=== PATIENT | male | born 1960 | race Caucasian/White ===

== ENCOUNTER → 2016-12-24 | Day surgery (SDC) | payer OTHER ==
[2016-12-12 15:22] VITALS: Ht 176.5 cm; Wt 96.4 kg
[~2016-12-24] VITALS: Ht 176.5 cm; Wt 96.4 kg
[~2016-12-24] MED LIST: ASPI81TA28 PO; COEN1CAP17 PO; GLC/500 PO; GLIP-197 PO; GLUC1000 PO; LIDOCAINE HCL 2% 2 ML VIAL (20MG/ML) ONE; LISI-725 PO; MIDAZOLAM HCL 1 MG/ML 2ML VIAL ONE; MULT-506 PO; PROPOFOL IV EMULSION 10 MG/ML 20 ML VIAL IV ONE; SIMV20TA2 PO; SODIUM CHLORIDE 0.9% 500ML 500 ML IV ONE
--- NOTE | 2016-12-24 08:51 | Endo History and Physical ---
History & Physical Date of Service: Dec 24, 2016. Chief Complaint: Colon polyps Referring Physician: Dr. Roni Flynn History of Present Illness 56 yo CM who presents for colonoscopy secondary to history of colon polyps. Past Surgical History Hx Cardiac Surgery: No Hx Internal Defibrillator: No Hx Pacemaker: No Hx Abdominal Surgery: No Hx of Implantable Prosthesis: No Hx Post-Op Nausea and Vomiting: No Hx Cancer Surgery: No Hx Thoracic Surgery: No Hx Orthopedic: Yes (LT/RT CTR, RT HAND TRIGGER FINGER) Hx Urinary Tract Surgery: Yes (VASECTOMY) Family History Colon CA Social History Smoking Status: Current Every Day Smoker Hx Substance Use: No Hx Alcohol Use: Yes (OCCASIONAL) Allergies Coded Allergies: No Known Allergies (Verified , 12/24/16) Current Medications Reported Home Medications Medications Dose Route/Sig Max Daily Dose Days Date Category Glucosamine Sulfate 1,000 Mg Tab 1 Tab PO QAM 12/12/16 Reported Multivitamin (Multivitamins) Tab 1 Tab PO QAM 12/12/16 Reported Glucophage (Metformin Hcl) 500 Mg Tab 500 Mg PO TID 12/12/16 Reported Glipizide Er (Glipizide) 5 Mg Tab 1 Tab PO QAM 12/12/16 Reported Zocor (Simvastatin) 20 Mg Tab 20 Mg PO HS 12/12/16 Reported Zestril (Lisinopril) 20 Mg Tab 20 Mg PO HS 12/12/16 Reported Co Q 10 (Coenzyme Q10 (Ubidecarenone)) 100 Mg Cap 200 Mg PO QAM 12/12/16 Reported Aspirin Ec (Aspirin) 81 Mg Tab 81 Mg PO QAM 12/12/16 Reported Vital Signs Weight (Kilograms): 96.36 Height (Feet): 5 Height (Inches): 9.5 Date Time Temp Pulse Resp B/P Pulse Ox O2 Delivery O2 Flow Rate FiO2 12/24/16 08:06 36.9 67 18 157/89 94 Room Air Physical Exam General Appearance: WD/WN, no apparent distress Respiratory/Chest: Auscultation: breath sounds normal Cardiovascular: Heart Auscultation: RRR Abdomen: Bowel Sounds: normal Inspection & Palpation: soft, non-distended, no tenderness, guarding & rebound Assessment and Plan Assessment: 56 yo CM who presents for colonoscopy secondary to history of colon polyps. Plan: Proceed with colonoscopy.
--- NOTE | 2016-12-24 09:10 | Discharge Instructions ---
Endoscopy Patient Instructions Date / Procedure(s) Performed Dec 24, 2016. Colonoscopy Allergy Information Coded Allergies: No Known Allergies (Verified , 12/24/16) Discharge Date / Findings Dec 24, 2016. Colon polyps Internal hemorrhoids Medication Instructions Stopped Medication(s): Patient was told to only stop his metformin. OK to resume all medications today as prescribed. Reported Home Medications Medications Dose Route/Sig Max Daily Dose Days Date Category Glucosamine Sulfate 1,000 Mg Tab 1 Tab PO QAM 12/12/16 Reported Multivitamin (Multivitamins) Tab 1 Tab PO QAM 12/12/16 Reported Glucophage (Metformin Hcl) 500 Mg Tab 500 Mg PO TID 12/12/16 Reported Glipizide Er (Glipizide) 5 Mg Tab 1 Tab PO QAM 12/12/16 Reported Zocor (Simvastatin) 20 Mg Tab 20 Mg PO HS 12/12/16 Reported Zestril (Lisinopril) 20 Mg Tab 20 Mg PO HS 12/12/16 Reported Co Q 10 (Coenzyme Q10 (Ubidecarenone)) 100 Mg Cap 200 Mg PO QAM 12/12/16 Reported Aspirin Ec (Aspirin) 81 Mg Tab 81 Mg PO QAM 12/12/16 Reported Provider Instructions Activity Restrictions - No exercising or heavy lifting for 24 hours. - Do not drink alcohol the day of the procedure. - Do not drive a car or operate machinery until the day after the procedure. - Do not make any important decisions or sign important papers in 24 hours after the procedure. Following Day: - Return to full activity which may include returning to work/school. Diet Start your diet with liquids and light foods (jello, soup, juice, toast). Then eat your usual diet if not nauseated. Treatment For Common After Affects For mild abdominal pain, bloating, or excessive gas: - Rest - Eat lightly - Lie on right side Follow-Up Information Follow-up with Dr. Roni Flynn as scheduled Anesthesia Information What You Should Know You have had a procedure that required some medicine to reduce anxiety and discomfort. This treatment is called moderate sedation. After receiving the treatment, you may be sleepy, but you will be able to breathe on your own. The effects of the treatment may last for several hours. Follow these instructions along with Activity/Diet recommendations noted above: * Do NOT do anything where dizziness or clumsiness would be dangerous. * Rest quietly at home today, then you can be up and about tomorrow. * Have a responsible person stay with you the rest of today. * You may have had an I.V. today. If so, you may take the dressing off later today. Recommendations Call your doctor if: * Trouble breathing * Continuous vomiting for more than 24 hours * Temperature above 101 degrees * Severe abdominal pain or bloating * Pain not relieved by pain medicine ordered * There is increased drainage or redness from any incision * A large amount of rectal bleeding greater than 2-3 tablespoons. (If you had a polyp/s removed or have hemorrhoids, a small amount of blood - from the rectum is to be expected.) * You have any unanswered questions or concerns. IN THE EVENT OF A SERIOUS EMERGENCY, GO TO THE NEAREST EMERGENCY ROOM Your discharge instructions were prepared by provider Tres Bhakta. Patient Instructions Signature Page Juan Carlos Hoang Patient (or Guardian) Signature/Date: I have read and understand the instructions given to me by my caregivers. Caregiver/RN/Doctor Signature/Date: The above-named patient and/or guardian has received patient instructions on this date. + Original Patient Signature Page (only) stays with chart. Please make copy for patient.
--- NOTE | 2016-12-24 09:14 | GI REPORT ---
Procedure Date: 12/24/2016 8:48 AM Procedure: Colonoscopy Indications: High risk colon cancer surveillance: Personal history of colonic polyps Medicines: Monitored Anesthesia Care Complications: No immediate complications. Estimated Blood Loss: Estimated blood loss: none. Procedure: Pre-Anesthesia Assessment: - Prior to the procedure, a History and Physical was performed, and patient medications and allergies were reviewed. The patient's tolerance of previous anesthesia was also reviewed. The risks and benefits of the procedure and the sedation options and risks were discussed with the patient. All questions were answered, and informed consent was obtained. Prior Anticoagulants: The patient has taken aspirin, last dose was day of procedure. ASA Grade Assessment: III - A patient with severe systemic disease. After reviewing the risks and benefits, the patient was deemed in satisfactory condition to undergo the procedure. After I obtained informed consent, the scope was passed under direct vision. Throughout the procedure, the patient's blood pressure, pulse, and oxygen saturations were monitored continuously. The scope was introduced through the anus and advanced to the terminal ileum. The colonoscopy was performed without difficulty. The patient tolerated the procedure well. The quality of the bowel preparation was good. Findings: A 3 mm polyp was found in the sigmoid colon. The polyp was sessile. The polyp was removed with a cold biopsy forceps. Resection and retrieval were complete. A 5 mm polyp was found in the sigmoid colon. The polyp was sessile. The polyp was removed with a hot snare. Resection and retrieval were complete. Non-bleeding internal hemorrhoids were found during retroflexion. The hemorrhoids were small. Impression: - One 3 mm polyp in the sigmoid colon, removed with a cold biopsy forceps. Resected and retrieved. - One 5 mm polyp in the sigmoid colon, removed with a hot snare. Resected and retrieved. - Non-bleeding internal hemorrhoids. Recommendation: - Resume previous diet. - Continue present medications. - Repeat colonoscopy for surveillance based on pathology results. - Return to primary care physician as previously scheduled. Tres Bhakta DO 12/24/2016 9:13:12 AM This report has been signed electronically. Note Initiated On: 12/24/2016 8:48 AM I attest to the content of the Intraoperative Record and orders documented therein, exceptions below
--- NOTE | 2016-12-24 09:34 | Anesthesiology Progress Note ---
Anesthesia Post Op Note Date & Time Dec 24, 2016 at 09:34 Vital Signs Pain Intensity: 0 Vital Signs Past 12 Hours Date Time Temp Pulse Resp B/P Pulse Ox O2 Delivery O2 Flow Rate FiO2 12/24/16 09:12 62 16 106/61 96 Room Air 12/24/16 08:06 36.9 67 18 157/89 94 Room Air Notes Mental Status: alert / awake / arousable, participated in evaluation Pt Amnestic to Procedure: Yes Nausea / Vomiting: adequately controlled Pain: adequately controlled Airway Patency, RR, SpO2: stable & adequate BP & HR: stable & adequate Hydration State: stable & adequate Anesthetic Complications: no major complications apparent
[2016-12-24 09:50] VITALS: BP 130/82; PULSE 62; O2SAT 97
== END | disposition home or self-care (01) ==
LOC: C.GI 07:39
PROVIDERS: ATTEND Internal Medicine
DX: Z12.11 Encounter for screening for malignant neoplasm of colon (principal); Z86.010 Personal history of colon polyps; K63.5 Polyp of colon; K57.30 Diverticulosis of large intestine without perforation or abscess without bleeding; K64.8 Other hemorrhoids; Z80.0 Family history of malignant neoplasm of digestive organs; Z98.890 Other specified postprocedural states; Z79.82 Long term (current) use of aspirin; F17.210 Nicotine dependence, cigarettes, uncomplicated

== ENCOUNTER → 2017-01-23 | Outpatient (CLI) | payer OTHER ==
[~2017-01-23] MED LIST changes: -LIDOCAINE HCL 2% 2 ML VIAL (20MG/ML) ONE; -MIDAZOLAM HCL 1 MG/ML 2ML VIAL ONE; -PROPOFOL IV EMULSION 10 MG/ML 20 ML VIAL IV ONE; -SODIUM CHLORIDE 0.9% 500ML 500 ML IV ONE
[2017-01-23 10:58] LABS: ESTIMATED AVERAGE GLUCOSE 163 mg/dl; HA1C FLAG Normal (Normal)
[2017-01-23 11:07] LABS: ALT/SGPT 37 U/L (12-78); AST/SGOT 12 U/L (15-37); BLOOD UREA NITROGEN 15 mg/dl (7-18); BUN/CREATININE RATIO 14.8 (10-20); CALCIUM 8.7 mg/dl (8.5-10.1); CARBON DIOXIDE 29 mmol/L (21-32); CHLORIDE 104 mmol/L (98-107); CHOLESTEROL 142 mg/dl (0-200); GLUCOSE 262 mg/dl (70-99); POTASSIUM 4.1 mmol/L (3.5-5.1); SODIUM 140 mmol/L (136-145)
[2017-01-23 11:13] LABS: CHOLESTEROL/HDL RATIO 3.5; HDL CHOLESTEROL 41 mg/dl; LDL CHOLESTEROL CALCULATED 38 mg/dl; PROSTATE SPECIFIC ANTIGEN 0.914 ng/ml (0.000-4.000); TRIGLYCERIDES 317 mg/dl (0-150); VERY LOW DENSITY LIPOPROT CALC 63 mg/dl
[2017-01-23 12:22] LABS: RATIO 9.6 mcg/mg (0-30.0)
== END | disposition home or self-care (01) ==
LOC: C.LAB 07:03
PROVIDERS: ATTEND Internal Medicine
DX: E11.9 Type 2 diabetes mellitus without complications (principal); E78.5 Hyperlipidemia, unspecified; Z12.5 Encounter for screening for malignant neoplasm of prostate

== ENCOUNTER → 2017-05-27 | Outpatient (CLI) | payer OTHER ==
[2017-05-27 09:41] LABS: BLOOD UREA NITROGEN 14 mg/dl (7-18); BUN/CREATININE RATIO 14.8 (10-20); CALCIUM 8.8 mg/dl (8.5-10.1); CARBON DIOXIDE 31 mmol/L (21-32); CHLORIDE 106 mmol/L (98-107); CREATININE 0.97 mg/dl (0.60-1.40); GLUCOSE 166 mg/dl (70-99); POTASSIUM 4.4 mmol/L (3.5-5.1); SODIUM 140 mmol/L (136-145)
[2017-05-27 09:42] LABS: TRIGLYCERIDES 87 mg/dl (0-150)
[2017-05-27 10:11] LABS: ESTIMATED AVERAGE GLUCOSE 157 mg/dl; HA1C FLAG Normal (Normal)
== END | disposition home or self-care (01) ==
LOC: C.LAB 07:55
PROVIDERS: ATTEND Internal Medicine
DX: E11.9 Type 2 diabetes mellitus without complications (principal); E78.5 Hyperlipidemia, unspecified

== ENCOUNTER 2017-08-06 06:19 | Emergency (ER) | payer OTHER ==
[~2017-08-06] VITALS: Ht 175.3 cm; Wt 98.2 kg
[2017-08-06 06:22] VITALS: BP 203/101; PULSE 73; TEMP 36.8; O2SAT 97; Ht 175.3 cm; Wt 98.2 kg
--- NOTE | 2017-08-06 06:38 | EMERGENCY ROOM VISIT NOTE ---
ED Visit Note First contact with patient: 06:34 CHIEF COMPLAINT: Tick bite HISTORY OF PRESENT ILLNESS: This 56 yo patient presents to the emergency department after they noticed 3 ticks embedded less than 24 hours. The patient did not try to remove it. It had been on for less than 24 hours. The patient's tetanus shot is up-to-date. The patient denies any rashes, fevers, chills, or lightheadedness. The patient denies joint tenderness. REVIEW OF SYSTEMS: A 6 system review of systems was completed with positives and pertinent negatives listed in the HPI. ALLERGIES: None MEDICATIONS: Reviewed PMH: Hypertension SOCIAL HISTORY: No drug use PHYSICAL EXAM: Vital Signs: Reviewed Nurse's notes, vital signs hypertensive. GENERAL: Pleasant male, in no acute distress, well-developed, well-nourished. SKIN: There 3 small brown ticks embedded in the patient's abdomen. There small small zones of inflammation and eccymosis around the spot where the ticks were. The skin is otherwise clear. NEUROLOGICAL: Alert and oriented to person place and time, cooperative. Sensory and motor functions grossly intact. ED COURSE: I examined the patient. A tick twister was used to remove the 3 ticks. The whole head was removed. There was no bleeding. The patient tolerated the procedure well. The area was dressed with bacitracin and a bandage. Patient was counseled on signs and symptoms of Lyme's disease. All questions are answered. He was informed his blood pressure was high today and to follow-up family care for this. He has a history of hypertension. The patient was discharged home in good condition. DIAGNOSIS: 3 Tick bites and removal to the abdominal wall DISCHARGE INSTRUCTIONS & TREATMENT: Watch the area for signs of infection. Keep bacitracin on it for 2 days. Follow up with family doctor if he develops symptoms of a target rash, fever, chills, lightheadedness, or joint pain. Monitor your blood pressure. It was high today. Follow-up with family care for this. Current/Historical Medications Scheduled Aspirin (Aspirin Ec), 81 MG PO QAM Coenzyme Q10 (Ubidecarenone) (Co Q 10), 200 MG PO QAM Glipizide (Glipizide Er), 1 TAB PO QAM Glucosamine Sulfate (Glucosamine Sulfate), 1 TAB PO QAM Lisinopril (Zestril), 20 MG PO HS Metformin Hcl (Glucophage), 500 MG PO TID Multivitamin (Multivitamin), 1 TAB PO QAM Simvastatin (Zocor), 20 MG PO HS Allergies Coded Allergies: No Known Allergies (Verified , 12/24/16) Vital Signs Date Time Temp Pulse Resp B/P (MAP) Pulse Ox O2 Delivery O2 Flow Rate FiO2 08/06/17 06:22 36.8 73 18 203/101 97 Room Air Departure Information Referrals Pro,Roni Ly M.D. (PCP) Patient Instructions [facility]
== END 2017-08-06 06:46 | disposition home or self-care (01) ==
LOC: C.EDB 06:20 → C.EDA 06:46
DX: S30.861A Insect bite (nonvenomous) of abdominal wall, initial encounter (principal); W57.XXXA Bitten or stung by nonvenomous insect and other nonvenomous arthropods, initial encounter

== ENCOUNTER → 2017-09-17 | Outpatient (CLI) | payer OTHER ==
[2017-09-17 10:19] LABS: ALT/SGPT 25 U/L (12-78); AST/SGOT 7 U/L (15-37); BLOOD UREA NITROGEN 21 mg/dl (7-18); BUN/CREATININE RATIO 24.5 (10-20); CALCIUM 9.2 mg/dl (8.5-10.1); CARBON DIOXIDE 27 mmol/L (21-32); CHLORIDE 104 mmol/L (98-107); CHOLESTEROL 159 mg/dl (0-200); CREATININE 0.87 mg/dl (0.60-1.40); GLUCOSE 162 mg/dl (70-99); POTASSIUM 4.3 mmol/L (3.5-5.1); SODIUM 137 mmol/L (136-145); TRIGLYCERIDES 108 mg/dl (0-150); VERY LOW DENSITY LIPOPROT CALC 22 mg/dl
[2017-09-17 10:22] LABS: CHOLESTEROL/HDL RATIO 3.1; HDL CHOLESTEROL 52 mg/dl; LDL CHOLESTEROL CALCULATED 85 mg/dl
[2017-09-17 10:29] LABS: ESTIMATED AVERAGE GLUCOSE 169 mg/dl; HA1C FLAG Normal (Normal)
== END | disposition home or self-care (01) ==
LOC: C.LAB 06:28
PROVIDERS: ATTEND Internal Medicine
DX: E11.9 Type 2 diabetes mellitus without complications (principal); E78.5 Hyperlipidemia, unspecified

== ENCOUNTER 2024-03-22 16:55 | Inpatient (IN) ==
--- NOTE | 2024-03-22 16:59 | ED Triage Note ---
Date of Service March 22, 2024 Provider in Triage Author: Ritchie Thapa History of Present Illness This patient was briefly evaluated while in triage. An abbreviated physical exam was performed. This patient is a 63-year-old Male who presents to the ED for evaluation of chest pain and sweatiness. Patient also reports mild dizziness with mild nausea. The patient reports that it is in the center of his chest. He denies any pain radiating into the neck or left shoulder. The patient also reports feeling weak. Symptoms started 1/2-hour prior to arrival. The patient rates his discomfort a 6 out of 10. The patient denies any known personal or family history of heart attacks. Physical Exam CONSTITUTIONAL: Healthy and well nourished. Patient is mildly diaphoretic. RESPIRATORY: Clear to auscultation bilaterally with no wheezing, crackles, rhonchi or stridor. CARDIOVASCULAR: Regular rate and rhythm with no murmurs, rubs or gallops. GASTROINTESTINAL: Bowel sounds present in all quadrants. INTEGUMENTARY: No rash or other significant dermatologic conditions noted. HEMATOLOGIC: No ecchymosis or petechiae. PSYCHIATRIC: Positive affect. NEUROLOGIC: No focal neurologic deficits noted. Initial orders for labs and / or imaging were placed and patient was placed in the waiting area until a bed is available. Please see further documentation for the full ED course. Results & Data Other Data / Results An ECG shows an inferolateral ST elevation IN, as well as first-degree heart block. MDM / Impression Impression Impression: ST elevation myocardial infarction (STEMI)
[2024-03-22] MEDS: ASPIRIN 81 MG CHEW PO STA (17:09)
--- NOTE | 2024-03-22 17:10 | Emergency Department Note ---
Impression & Plan ST elevation myocardial infarction (STEMI) ED Provider Note NAME: SULTANA MONTANO AGE: 63 SEX: M : 1960 ARRIVES VIA: Walk-In INFORMANT: Patient ED PROVIDER(S): Juan Villeda MD CHIEF COMPLAINT: Chest pain PLAN: Disposition: Admit MEDICAL DECISION MAKING: The patient is a pleasant 63-year-old gentleman with a past medical history of type 2 diabetes who presents to the emergency department via walk-in accompanied by sister for evaluation of new onset substernal chest pain/pressure that occurred approximately 40 minutes prior to arrival when patient reports he was digging a hole to help his sister. Patient denies any preceding pattern of exertional chest pain. He reports feeling lightheaded and diaphoretic. He denies nausea or vomiting. He reports his pain is a 4/10. The patient presented to triage and had an EKG obtained which demonstrated inferior ST elevation RI and heart alert was activated. On my evaluation the patient is uncomfortable no distress, afebrile with blood pressure in the 150s/90s and vital signs otherwise stable. EKG demonstrates inferior ST elevations with reciprocal depressions noted. Chest x-ray with cardiomegaly and otherwise no overt cardiopulmonary process per my preliminary independent interpretation. WBC 12 K without left shift, nonspecific. Hemoglobin and platelets within limits. Chemistry without metabolic acidosis. LFTs unremarkable. Initial hostage troponin 7.0, within normal limits. Lipase is normal. Interventional cardiology, Dr. Liu, arrived to the bedside and consented the patient for [facility] intervention. Patient received 324 mg of aspirin, 180 mg ticagrelor load as well as 5000 units of heparin bolus. He was given IV fentanyl for pain and Zofran for nausea. Patient was transferred emergently to the [facility] for intervention. Case was discussed with Dr. Monroy, [facility] hospitalist, who will evaluate the patient for admission. Appreciate consultations/recommendations. Triage Nursing notes reviewed and agree them. Prior/external medical records reviewed Vital Signs: reviewed Differential diagnosis: Cardiac ischemia, aortic dissection, pulmonary embolism, pneumothorax, pneumonia, pericarditis, myocarditis, esophageal rupture, GERD, cholecystitis, pancreatitis, musculoskeletal, as well as other pathologies. ER treatment provided: See below. Diagnostics interpreted by me: ECG: Sinus bradycardia with first-degree AV block, 58 bpm, inferior ST elevations with reciprocal depressions. Cardiac Monitoring: An order for continuous cardiac monitoring was placed and demonstrated Sinus bradycardia with first-degree AV block, 58 bpm. Laboratory studies: See below Imaging studies: See below Consultation(s): Dr. Liu, interventional cardiology. Dr. Monroy, [facility] hospitalist. HPI: The patient is a pleasant 63-year-old gentleman with a past medical history of type 2 diabetes who presents to the emergency department via walk-in accompanied by sister for evaluation of new onset substernal chest pain/pressure that occurred approximately 40 minutes prior to arrival when patient reports he was digging a hole to help his sister. Patient denies any preceding pattern of exertional chest pain. He reports feeling lightheaded and diaphoretic. He denies nausea or vomiting. He reports his pain is a 4/10. The patient presented to triage and had an EKG obtained which demonstrated inferior ST elevation RI and heart alert was activated. ROS: See above HPI for pertinent positives & negatives. A total of 10 systems reviewed and were otherwise negative. VITALS:See Below PHYSICAL EXAMINATION: GENERAL: Awake, alert, uncomfortable-appearing, in no distress HENT: Normocephalic, atraumatic. Oropharynx unremarkable. EYES: Normal conjunctiva. Sclera non-icteric. NECK: Supple. No nuchal rigidity. FROM. No JVD. RESPIRATORY: Clear to auscultation. CARDIAC: Regular rate, normal rhythm. Extremities warm and well perfused. Pulses equal. ABDOMEN: Soft, non-distended. No tenderness to palpation. No rebound or guarding. No masses. MUSCULOSKELETAL: Chest examination reveals no tenderness. The back is symmetrical on inspection without obvious abnormality. There is no CVA tenderness to palpation. No joint edema. LOWER EXTREMITIES: Calves are equal size bilaterally and non-tender. No edema. No discoloration. NEURO: Normal sensorium. No sensory or motor deficits noted. SKIN: Mild diaphoresis. No rash or jaundice noted. ED COURSE: Critical Care: I have personally spent greater than 30 minutes of critical care time in the direct management of this patient. This includes bedside care, interpretation of diagnostic studies, and testing, discussion with consultants, patient, and family members, and other required patient management activities. This 30 minutes is in excess of all separately billable procedures. 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) Overweight (Acute) Peyronie's disease (Acute) Encounter for mastoidectomy cavity debridement Screening for prostate cancer Right hip pain Type 2 diabetes mellitus (Acute) H/O mastoidectomy (Acute) Medical History Sore throat Cough productive of purulent sputum Nasal congestion Bacterial sinusitis Arthritis BPH (benign prostatic hyperplasia) Hypertension Hyperlipidemia Tick bite Surgical History S/P trigger finger release History of colonoscopy History of tooth extraction History of ear surgery RT EAR>CYST REMOVED History of vasectomy Hx of tonsillectomy Family History Brother Myocardial infarction Mother Diabetes Myocardial infarction Cancer Sister Diabetes Lung cancer Cancer Father Lung cancer Unknown Hypertension Other No family history of adverse response to anesthesia Denies family history of Bleeding disorder Social History Smoking Status: Current every day smoker Tobacco Type: Cigarettes Age Started Using Tobacco: 19; packs per day: 0.5; Cigarettes Per Day: 6; Second Hand Exposure: No; Do You Dip or Chew Tobacco: No; Tobacco Cessation Education Requested by Patient: Yes Hx Alcohol Use: Yes Alcohol type: beer Hx Substance Use: No Preferred Language: Egyptian Communication Ability: Effective Visual Impairment: No Limitations Hearing Ability: Normal Gravity Prospecting Operator Required: No Beliefs That Will Affect Care: Amish Amish Beliefs: Christian marital status: Single Current Living Situation: Alone Current Living Situation Comment: Home alone current occupational status: employed Other Information That Helps Us Care for You: No Feels Safe at Home: Yes Safety Concerns: Feels Safe At This Time Physical Activity Frequency: Does not Exercise Assistive Devices: Glasses Allergies Allergies Allergy/AdvReac Type Severity Reaction Status Date / Time No Known Drug Allergies Allergy Verified 12/03/23 07:30 Home Meds Home Medications Medication Instructions Recorded Confirmed aspirin 81 mg tablet,delayed 81 mg PO DAILY #90 tabs 06/11/19 03/22/24 release multivitamin 1 tab PO DAILY 06/11/19 03/22/24 ascorbate calcium (vitamin C) 500 500 mg PO DAILY 12/14/19 03/22/24 mg tablet Previous Rx's Medication Instructions Recorded lancets 28 gauge (FreeStyle #100 ea 06/16/19 Lancets) blood-glucose meter (FreeStyle #1 ea 07/06/19 Lite Meter kit) blood sugar diagnostic (FreeStyle #200 ea 12/22/19 Lite Strips) glipizide 5 mg tablet, extended 5 mg PO BID #180 tabs 03/24/23 release 24 hr metformin 500 mg tablet 1,000 mg (2 x 500 mg) PO BID #360 04/23/23 tabs lisinopril 40 mg tablet 40 mg PO DAILY #90 tabs 06/26/23 simvastatin 20 mg tablet 20 mg PO HS #90 tabs 06/30/23 dulaglutide 3 mg/0.5 mL 3 mg (0.5 mL) subcut WK #6 mL 10/22/23 subcutaneous pen injector hydrochlorothiazide 12.5 mg tablet 12.5 mg PO DAILY #90 tabs 01/11/24 dulaglutide 1.5 mg/0.5 mL 1.5 mg (0.5 mL) subcut .COMPLEX #6 02/16/24 [facility] Results & Data (ED) Vital Signs Vital Signs - 24 hr 03/22/24 16:56 03/22/24 17:09 03/22/24 17:10 Temperature 36.4 C L Temperature Source Temporal Artery Scan Pulse Rate 60 63 Pulse Rate [Apical] 63 Pulse Rate from SpO2 Sensor Respiratory Rate 17 18 18 Respiratory Effort / Characteristics Non-Labored Respiratory Depth Normal Respiratory Pattern Regular Blood Pressure 115/67 Blood Pressure [Right Arm] 137/82 Blood Pressure Mean 83 Blood Pressure Mean [Right Arm] 100 Pulse Oximetry 96 98 Oxygen Delivery Method Room Air Room Air Oxygen Flow Rate Sepsis Recent Fever Within 48 Hours No Sepsis New/Unexplained Change in Mental Status N/A Sepsis Action Taken by Nursing No Action Required 03/22/24 17:12 03/22/24 17:15 03/22/24 17:15 Temperature Temperature Source Pulse Rate 62 61 Pulse Rate [Apical] Pulse Rate from SpO2 Sensor 62 Respiratory Rate 19 15 Respiratory Effort / Characteristics Respiratory Depth Respiratory Pattern Blood Pressure 151/91 H Blood Pressure [Right Arm] Blood Pressure Mean 125 Blood Pressure Mean [Right Arm] Pulse Oximetry 100 Oxygen Delivery Method Nasal Cannula Oxygen Flow Rate 2 Sepsis Recent Fever Within 48 Hours Sepsis New/Unexplained Change in Mental Status Sepsis Action Taken by Nursing 03/22/24 17:16 Temperature Temperature Source Pulse Rate 58 L Pulse Rate [Apical] Pulse Rate from SpO2 Sensor Respiratory Rate Respiratory Effort / Characteristics Respiratory Depth Respiratory Pattern Blood Pressure Blood Pressure [Right Arm] Blood Pressure Mean Blood Pressure Mean [Right Arm] Pulse Oximetry Oxygen Delivery Method Oxygen Flow Rate Sepsis Recent Fever Within 48 Hours Sepsis New/Unexplained Change in Mental Status Sepsis Action Taken by Nursing Laboratory Data Attestation: I reviewed the patient's lab results. 03/23/24 02:50 03/23/24 02:50 Lab Results 03/22/24 Range/Units 17:00 WBC 12.10 H (4.8-10.8) K/ul RBC 4.48 L (4.70-6.10) M/uL Hgb 14.2 (14.0-18.0) g/dl Hct 41.2 L (42.0-52.0) % MCV 92.0 (80.0-100.0) fL MCH 31.7 (25.0-34.0) pg MCHC 34.5 (32.0-36.0) g/dL RDW Std Deviation 42.1 (36.4-46.3) fL RDW Coeff of Juan 12.4 (11.5-14.5) % Plt Count 292 (130-400) K/uL MPV 8.8 L (9.4-12.4) fL Immature Gran % (Auto) 0.2 % Neut % (Auto) 50.0 % Lymph % (Auto) 36.3 % [place] % (Auto) 9.2 % Eos % (Auto) 3.5 % Baso % (Auto) 0.8 % Neut # (Auto) 6.05 (1.40-6.50) K/uL Lymph # (Auto) 4.39 H (1.20-3.40) K/uL [place] # (Auto) 1.11 H (0.11-0.59) K/uL Eos # (Auto) 0.42 (0.00-0.50) K/uL Baso # (Auto) 0.10 (0.00-0.20) K/uL Immature Gran # (Auto) 0.03 (0.01-0.20) K/uL PT 10.7 (9.0-12.0) Seconds INR 1.0 (0.9-1.1) APTT 22 (21-31) Seconds PTT Ratio 0.8 Sodium 138 (136-145) mmol/L Potassium 3.6 (3.5-5.1) mmol/L Chloride 103 (98-107) mmol/L Carbon Dioxide 25 (21-32) mmol/L Anion Gap 10 (3-11) BUN 24 H (6-23) mg/dl Creatinine 1.12 (0.6-1.4) mg/dl Est Cr Clr Drug Dosing 76.0 ml/min Est GFR ( Amer) 80.0 ml/min Est GFR (Non-Af Amer) 69.0 ml/min BUN/Creatinine Ratio 21.4 H (10-20) Glucose 174 H (70-99(Fasting)) mg/dl Calcium 10.2 (8.6-10.3) mg/dl Magnesium 1.6 L (1.7-2.4) mg/dl Total Bilirubin 0.5 (0.2-1.0) mg/dl AST 15 (13-39) U/L ALT 21 (7-52) U/L Alkaline Phosphatase 46 (34-104) U/L Troponin I High Sens 7.0 (0-20) pg/ml Total Protein 7.3 (6.0-8.3) gm/dl Albumin 4.9 (3.4-5.0) gm/dl Globulin 2.4 L (2.5-4.0) gm/dl Albumin/Globulin Ratio 2.0 (0.9-2) Lipase 32 (11-82) U/L Administered Medications Sodium Chloride (Nss) 1,000 mls @ 75 mls/hr IV .[id number] [facility] Stop: 04/21/24 18:29 Last Admin: 03/22/24 20:26 Dose: 75 mls/hr Documented By: JOSE E Insulin Aspart (Insulin Aspart Per Unit Charge) 0 units SC ACHS [facility] Stop: 04/21/24 20:59 Last Admin: 03/22/24 20:42 Dose: 1 units Documented By: JOSE E Co-signed By: CHRISTELLE Insulin Glargine (Lantus Per Unit Charge) 5 units SQ BID [place] Stop: 04/21/24 20:59 Last Admin: 03/22/24 20:42 Dose: 5 units Documented By: JOSE E Co-signed By: CHRISTELLE Metoprolol Tartrate (Metoprolol Tartrate 25 Mg Tab) 25 mg PO BID [place] Stop: 04/21/24 20:59 Last Admin: 03/22/24 20:30 Dose: 25 mg Documented By: JOSE E Discontinued Medications Aspirin (Aspirin 81 Mg Chew) 324 mg PO NOW STA Stop: 03/22/24 17:01 Last Admin: 03/22/24 17:09 Dose: 324 mg Documented By: CORINE Atropine Sulfate (Atropine Sulfate 0.1 Mg/Ml 10ml Syr) Confirm Administered Dose 1 mg IV .STK-MED ONE Stop: 03/22/24 17:52 Last Admin: 03/22/24 17:57 Dose: 0.5 mg Documented By: NAM Eptifibatide (Eptifibatide 2 Mg/Ml 10 Ml Vial ([facility] Use Only)) Confirm Administered Dose 40 mg IV .STK-MED ONE Stop: 03/22/24 17:49 Last Admin: 03/22/24 17:59 Dose: 17 ml Documented By: NAM Eptifibatide (Eptifibatide 0.75 Mg/Ml 75mg Vial ([facility] Use Only)) Confirm Administered Dose 75 mg IV .STK-MED ONE Stop: 03/22/24 17:50 Last Admin: 03/22/24 18:00 Dose: 75 mg Documented By: NAM Fentanyl Citrate (Fentanyl Citrate Pf 100 Mcg/2 Ml Vial) Confirm Administered Dose 100 mcg .ROUTE .STK-MED ONE Stop: 03/22/24 17:10 Last Increment: 03/22/24 17:57 Dose: 25 mcg Documented By: NAM Fentanyl Citrate (Fentanyl Citrate Pf 100 Mcg/2 Ml Vial) 50 mcg IV NOW STA Stop: 03/22/24 17:10 Last Admin: 03/22/24 17:14 Dose: 50 mcg Documented By: CORINE Heparin Sodium (Porcine) (Heparin Sod (Porcine) 1000 Unit/Ml) 5,000 units IV NOW ONE Stop: 03/22/24 17:08 Last Admin: 03/22/24 17:12 Dose: 5,000 units Documented By: CORINE Co-signed By: ANGELICA Heparin Sodium (Porcine) (Heparin (Porcine) 1000 Unit/Ml 10 Ml ([facility] Use Only)) Confirm Administered Dose 10,000 units .ROUTE .STK-MED ONE Stop: 03/22/24 17:10 Last Admin: 03/22/24 17:56 Dose: 7,500 units Documented By: NAM Heparin Sodium/Sodium Chloride (Heparin In Nss Infusion 1000 Unit/500 Ml (2 U/Ml) Bag) Confirm Administered Dose 3,000 units IV .STK-MED ONE Stop: 03/22/24 17:10 Last Admin: 03/22/24 19:31 Dose: Not Given Documented By: PAH Eptifibatide (Integrilin) 75 mg in 100 mls @ 14.752 mls/hr IV .[id number] [facility]; Protocol Stop: 03/22/24 20:15 Last Infusion: 03/22/24 20:28 Dose: Infused Documented By: JOSE E Co-signed By: SIA Admin: 03/22/24 19:00 Dose: 2 mcg/kg/min, 14.8 mls/hr Documented By: PAH Co-signed By: SIA Iodixanol (Iodixanol (Visipaque) 320 Mg/Ml 100ml) Confirm Administered Dose 1 ml IV .STK-MED ONE Stop: 03/22/24 17:10 Last Admin: 03/22/24 19:31 Dose: Not Given Documented By: PAH Ioversol (Optiray 350) Confirm Administered Dose 1 ml .ROUTE .STK-MED ONE Stop: 03/22/24 17:10 Last Admin: 03/22/24 19:32 Dose: Not Given Documented By: JOSE E Midazolam HCl (Midazolam Hcl 1 Mg/Ml 2ml Vial) Confirm Administered Dose 2 mg .ROUTE .STK-MED ONE Stop: 03/22/24 17:09 Last Increment: 03/22/24 17:57 Dose: 1 mg Documented By: NAM Miscellaneous (Eptifibatide (Integrilin) Infusion~Stop Order) 1 each N/A 03/22/24@2014 ONE Stop: 03/22/24 20:16 Last Admin: 03/22/24 20:27 Dose: 1 each Documented By: JOSE E Nicardipine HCl (Nicardipine Hcl Inj 2.5 Mg/Ml 10 Ml Amp) Confirm Administered Dose 25 mg .ROUTE .STK-MED ONE Stop: 03/22/24 17:10 Last Admin: 03/22/24 17:58 Dose: 25 mg Documented By: ALEN Nitroglycerin/Dextrose (Nitroglycerin/D5w 100mcg/Ml 20ml Syr) Confirm Administered Dose 2,000 mcg .ROUTE .STK-MED ONE Stop: 03/22/24 17:10 Last Admin: 03/22/24 17:58 Dose: 2,000 mcg Documented By: ALEN Ondansetron HCl (Ondansetron Inj 2 Mg/Ml 2 Ml Vial) 4 mg IV NOW STA Stop: 03/22/24 17:10 Last Admin: 03/22/24 17:13 Dose: 4 mg Documented By: CORINE Ondansetron HCl (Ondansetron Inj 2 Mg/Ml 2 Ml Vial) Confirm Administered Dose 4 mg .ROUTE .STK-MED ONE Stop: 03/22/24 17:11 Last Admin: 03/22/24 19:33 Dose: Not Given Documented By: JOSE E Ticagrelor (Ticagrelor 90 Mg Tab) 180 mg PO ONE ONE Stop: 03/22/24 17:08 Last Admin: 03/22/24 17:12 Dose: 180 mg Documented By: CORINE Imaging Data Radiologist's Impression: Chest X-Ray 03/22/24 17:00 XR chest 1V portable CLINICAL HISTORY: Chest pain, nonspecific TECHNIQUE: Single frontal radiograph of the chest was obtained. Comparison: Comparison is made to chest radiograph 11/24/2021 FINDINGS: No lines and tubes are seen. The cardiomediastinal silhouette is normal. The lungs are clear. No evidence of pleural effusion or pneumothorax. IMPRESSION: No acute chest disease. ACT 112: Negative or not required by law. Electronically signed by: Rolando Cisneros M.D. 03/22/2024 5:33 PM Discharge Plan Visit Data Chief Complaint: Cardiac Assessment Stated Complaint: SEVERE CHEST PAINS ED Provider: Juan Villeda Discharge Problem: ST elevation myocardial infarction (STEMI) Patient Disposition: Admitted As Inpatient Discharge Instructions Interventions: ED Discharge Assessment Last Done: 03/22/24 17:24 Discharge Problem: ST elevation myocardial infarction (STEMI) Qualifiers: Involved coronary artery: unspecified coronary artery Qualified Code(s): I21.3 - ST elevation (STEMI) myocardial infarction of unspecified site
[2024-03-22] MEDS: TICAGRELOR 90 MG TAB PO ONE (17:12)
[2024-03-22] MEDS: HEPARIN SOD (PORCINE) 1000 UNIT/ML IV ONE (17:12)
[2024-03-22] MEDS: ONDANSETRON INJ 2 MG/ML 2 ML VIAL IV STA (17:13)
[2024-03-22] MEDS: fentaNYL citrate PF 100 MCG/2 ML VIAL IV STA (17:14)
[2024-03-22 17:18] LABS: Hematocrit (blood only) 41.2 % (42.0-52.0); Hemoglobin 14.2 g/dl (14.0-18.0); Mean Corpuscular Hemoglobin 31.7 pg (25.0-34.0); Mean Corpuscular Hgb Conc 34.5 g/dL (32.0-36.0); Mean Platelet Volume 8.8 fL (9.4-12.4); Platelet Count 292 K/uL (130-400); RDW Coefficient of Variation 12.4 % (11.5-14.5); RDW Standard Deviation 42.1 fL (36.4-46.3); Red Blood Count 4.48 M/uL (4.70-6.10)
--- NOTE | 2024-03-22 17:34 | XRay Report ---
XR chest 1V portable CLINICAL HISTORY: Chest pain, nonspecific TECHNIQUE: Single frontal radiograph of the chest was obtained. Comparison: Comparison is made to chest radiograph 11/24/2021 FINDINGS: No lines and tubes are seen. The cardiomediastinal silhouette is normal. The lungs are clear. No evid ence of pleural effusion or pneumothorax. IMPRESSION: No acute chest disease. ACT 112: Negative or not required by law. Electronically signed by: Rolando Cisneros M.D. 03/22/2024 5:33 PM
[2024-03-22 17:36] LABS: Albumin Level 4.9 gm/dl (3.4-5.0); BUN Creatinine Ratio 21.4 (10-20); Bilirubin,Total 0.5 mg/dl (0.2-1.0); Calcium 10.2 mg/dl (8.6-10.3); Globulin 2.4 gm/dl (2.5-4.0); Potassium 3.6 mmol/L (3.5-5.1); Total Protein 7.3 gm/dl (6.0-8.3)
--- NOTE | 2024-03-22 17:38 | History & Physical Report ---
Date of Service March 22, 2024 Assessment & Plan (1) ST elevation myocardial infarction (STEMI): Plan: STEMI Presented with 30 minutes of chest pain, substernal, 6/10 INFLATED PAD BUFFER EKG: Acute inferolateral STEMI with reciprocal changes Initial troponin is negative. Trended every 6 hours x 3 Chest x-ray no acute findings Taken emergently to the cardiac Postdoctoral Scholar S/p 1 stent to the RCA. Patient also with residual LAD disease which will require staged PCI 03/23. Metoprolol 12.5mg BID PO added, uptitrate as tolerated and consolidate to succinate once stable Simvastatin converted to atorvastatin 40 mg - Continue LEANN -Patient recommended for Integrilin drip post cath, admitted to ICU for post cath. Due to development of a hematoma at a IV access site (not at his catheter access site) Brilinta will be truncated at 8 PM tonight rather than continued tomorrow morning Continue DAPT (2) Type 2 diabetes mellitus: Plan: Type II DM Metformin, glipizide held while inpatient Patient is on dulaglutide INFLATED PAD BUFFER, Glucose checks AC/at bedtime Goal BSG 862323 (3) Hypertension: Plan: Hypertension Lisinopril as noted (4) Hyperlipidemia: Plan: Atorvastatin as noted A.m. lipid panel pending (5) BPH (benign prostatic hyperplasia): Plan: Bladder scan as needed, may add Flomax if needed Plan DVT prophylaxis: SCDs, patient is post dual antiplatelet load, heparin IV bolus x 1 and on Integrilin post cath Diet: Heart healthy, DM 2 Disposition: ICU post cath CODE STATUS: Full code History of Present Illness Primary Care Provider: Roni Flynn MD Juan Carlos Hoang is a 63-year-old male with past medical history of type 2 diabetes, hypertension, hyperlipidemia without prior history of CAD who presented with chest pain and diaphoresis, mild nausea with substernal chest pain which started abruptly about 30 minutes before evaluation in the ER. 6/10 pain. EKG with inferior lateral STEMI. Heart alert was called and patient was taken emergently to the cardiac Postdoctoral Scholar. Seen at the bedside post cath. He has had complete resolution of his pain. He reports that he has no prior history of chest pain chest pressure or cardiac disease. Does have a history of diabetes, he did not take his dulaglutide this past Thursday. He has a history of half pack per day tobacco use, will think about quitting. He does not have any history of bleeding disorders or DVT. Does have history of well-controlled hypertension. Hyperlipidemia on simvastatin. Episode today occurred while he was taking a whole, had sudden onset of pain which radiated to the middle of his chest was associated with some sweating. All symptoms have completely resolved post cath. Does have a right forearm hematoma slightly proximal to his radial access site, this is at the site of his IV access Medical History: Reviewed Medications: Reviewed Surgical History: Reviewed Family history: Reviewed Allergies: Reviewed Social History: Reviewed Code Status:Full Allergies Allergy/AdvReac Type Severity Reaction Status Date / Time No Known Drug Allergies Allergy Verified 12/03/23 07:30 Home Medications Medication Instructions Recorded Confirmed Type aspirin 81 mg tablet,delayed 81 mg PO DAILY #90 tabs 06/11/19 03/22/24 History release multivitamin 1 tab PO DAILY 06/11/19 03/22/24 History lancets 28 gauge (FreeStyle #100 ea 06/16/19 03/22/24 Rx Lancets) blood-glucose meter (FreeStyle #1 ea 07/06/19 03/22/24 Rx Lite Meter kit) ascorbate calcium (vitamin C) 500 500 mg PO DAILY 12/14/19 03/22/24 History mg tablet blood sugar diagnostic (FreeStyle #200 ea 12/22/19 03/22/24 Rx Lite Strips) glipizide 5 mg tablet, extended 5 mg PO BID #180 tabs 03/24/23 03/22/24 Rx release 24 hr metformin 500 mg tablet 1,000 mg (2 x 500 mg) PO BID #360 04/23/23 03/22/24 Rx tabs lisinopril 40 mg tablet 40 mg PO DAILY #90 tabs 06/26/23 03/22/24 Rx simvastatin 20 mg tablet 20 mg PO HS #90 tabs 06/30/23 03/22/24 Rx dulaglutide 3 mg/0.5 mL 3 mg (0.5 mL) subcut WK #6 mL 10/22/23 03/22/24 Rx subcutaneous pen injector hydrochlorothiazide 12.5 mg tablet 12.5 mg PO DAILY #90 tabs 01/11/24 03/22/24 Rx dulaglutide 1.5 mg/0.5 mL 1.5 mg (0.5 mL) subcut .COMPLEX #6 02/16/24 03/22/24 Rx subcutaneous pen injector syringes (Trulicity) Past Med/Surg History Problem List ST elevation myocardial infarction (STEMI) (Acute) History of colon polyps Hyperlipidemia (Acute) Hypertension (Acute) Mixed conductive and sensorineural hearing loss of both ears (Acute) Overweight (Acute) Peyronie's disease (Acute) Encounter for mastoidectomy cavity debridement Screening for prostate cancer Right hip pain Type 2 diabetes mellitus (Acute) H/O mastoidectomy (Acute) Medical History Sore throat Cough productive of purulent sputum Nasal congestion Bacterial sinusitis Arthritis BPH (benign prostatic hyperplasia) Hypertension Hyperlipidemia Tick bite Surgical History S/P trigger finger release History of colonoscopy History of tooth extraction History of ear surgery RT EAR>CYST REMOVED History of vasectomy Hx of tonsillectomy Family History Brother Myocardial infarction Mother Diabetes Myocardial infarction Cancer Sister Diabetes Lung cancer Cancer Father Lung cancer Unknown Hypertension Other No family history of adverse response to anesthesia Denies family history of Bleeding disorder Social History Smoking Status: Current every day smoker Tobacco Type: Cigarettes Age Started Using Tobacco: 19; packs per day: 0.5; Cigarettes Per Day: 6; Second Hand Exposure: No; Do You Dip or Chew Tobacco: No; Tobacco Cessation Education Requested by Patient: Yes Hx Alcohol Use: Yes Alcohol type: beer Hx Substance Use: No Preferred Language: Telugu Communication Ability: Effective Visual Impairment: No Limitations Hearing Ability: Normal 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 NAD. Cooperative. HEENT: Atraumatic, normocephalic. Vision and hearing grossly intact Pulm: CTAB A&P. -wheezes, -rales, -rhonchi. Symmetrical chest rise. No increased work of breathing. No respiratory distress. Cardiac: RRR, -mrg. Radial pulses intact and symmetrical. Abdominal: Nontender, nondistended, soft. BS present. Extremities: No lower extremity pitting edema. 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 Patient has a approximate 3 cm hematoma just proximal to his radial access site is status prior IV access. Results & Data Results & Data Vital Signs (Past 12 Hours) Vital Signs Temp Pulse Pulse Resp BP BP Pulse Ox 03/22/24 17:16 58 L 03/22/24 17:15 151/91 H 03/22/24 17:15 61 15 100 03/22/24 17:12 62 19 03/22/24 17:10 63 18 137/82 98 03/22/24 17:09 63 18 03/22/24 16:56 36.4 C L 60 17 115/67 96 O2 Del Method O2 Flow Rate 03/22/24 17:16 03/22/24 17:15 03/22/24 17:15 Nasal Cannula 2 03/22/24 17:12 03/22/24 17:10 Room Air 03/22/24 17:09 03/22/24 16:56 Room Air PG Care Time/CCT Total # of Minutes Spent Total Time Spent with Patient: Total time spent is greater than 50% in coordination of care (as documented) at patient's floor/unit and/or counseling patient: Coding Level of Care Code 92182 INT INP/OBS CARE 3/75MIN Diagnoses ST elevation myocardial infarction (STEMI) I21.3 Type 2 diabetes mellitus E11.9 Hypertension I10 Hyperlipidemia E78.5 BPH (benign prostatic hyperplasia) N40.0
[2024-03-22 17:42] LABS: Partial Thromboplastin Ratio 0.8; Partial Thromboplastin Time 22 Seconds (21-31); Prothrombin Time 10.7 Seconds (9.0-12.0)
[2024-03-22 17:45] LABS: Basophils % (auto) 0.8 %; Eosinophils # (auto) 0.42 K/uL (0.00-0.50); Eosinophils % (auto) 3.5 %; Immature Granulocytes # (auto) 0.03 K/uL (0.01-0.20); Immature Granulocytes % (auto) 0.2 %; Lymphocytes # (auto) 4.39 K/uL (1.20-3.40); Lymphocytes % (auto) 36.3 %; Monocytes # (auto) 1.11 K/uL (0.11-0.59); Monocytes % (auto) 9.2 %; Neutrophils # (auto) 6.05 K/uL (1.40-6.50)
[2024-03-22] MEDS: HEPARIN (PORCINE) 1000 UNIT/ML 10 ML (CATH LAB USE ONLY) ONE (17:56)
[2024-03-22] MEDS: MIDAZOLAM HCL 1 MG/ML 2ML VIAL ONE (17:57)
[2024-03-22] MEDS: fentaNYL citrate PF 100 MCG/2 ML VIAL ONE (17:57)
[2024-03-22] MEDS: ATROPINE SULFATE 0.1 MG/ML 10ML SYR IV ONE (17:57)
[2024-03-22] MEDS: niCARdipine HCL INJ 2.5 MG/ML 10 ML AMP ONE (17:58)
[2024-03-22] MEDS: NITROGLYCERIN/D5W 100MCG/ML 20ML SYR ONE (17:58)
[2024-03-22] MEDS: EPTIFIBATIDE 2 MG/ML 10 ML VIAL (CATH LAB USE ONLY) IV ONE (17:59)
[2024-03-22] MEDS: EPTIFIBATIDE 0.75 MG/ML 75MG VIAL (CATH LAB USE ONLY) IV ONE (18:00)
[2024-03-22] MEDS ORDERED: ATROPINE SULFATE 0.1 MG/ML 10ML SYR IV PRN (18:14)
[2024-03-22] MEDS ORDERED: ACETAMINOPHEN 325 MG TAB PO PRN (18:14)
[2024-03-22] MEDS ORDERED: EPTIFIBATIDE BOLUS/DRIP IV STA (18:14)
[2024-03-22] MEDS ORDERED: ONDANSETRON INJ 2 MG/ML 2 ML VIAL IV PRN (18:14)
[2024-03-22] MEDS ORDERED: NITROGLYCERIN SL 0.4 MG/TAB TAB SL PRN (18:14)
--- NOTE | 2024-03-22 18:33 | Pre Anesthesia Assessment ---
Date of Service March 22, 2024 Pre Sedation Assessment Vital Signs Temp Pulse Pulse Resp BP BP Pulse Ox 03/22/24 17:16 58 L 03/22/24 17:15 151/91 H 03/22/24 17:15 61 15 100 03/22/24 17:12 62 19 03/22/24 17:10 63 18 137/82 98 03/22/24 17:09 63 18 03/22/24 16:56 36.4 C L 60 17 115/67 96 O2 Del Method O2 Flow Rate 03/22/24 17:16 03/22/24 17:15 03/22/24 17:15 Nasal Cannula 2 03/22/24 17:12 03/22/24 17:10 Room Air 03/22/24 17:09 03/22/24 16:56 Room Air Cardiovascular RRR, no murmur, no edema Respiratory normal respiratory effort, lungs clear to auscultation Pre-Sedation Airway Assessment Smoking Status: Current every day smoker MALLAMPATI 3 ASA 4 Notes The planned sedation has been discussed with the patient. Informed Consent was obtained. I have identified the patient, determined the appropriateness of sedation and have assessed the patient immediately prior to the procedure. All medicine(s) and interventions are by my order. [facility] Procedure Codes (Charges) Indication for Procedure Indication for procedure: INFERIOR STEMI
--- NOTE | 2024-03-22 18:35 | Post Anesthesia Assessment ---
Date of Service March 22, 2024 Post Sedation Assessment Vital Signs Temp Pulse Pulse Resp BP BP Pulse Ox 03/22/24 17:16 58 L 03/22/24 17:15 151/91 H 03/22/24 17:15 61 15 100 03/22/24 17:12 62 19 03/22/24 17:10 63 18 137/82 98 03/22/24 17:09 63 18 03/22/24 16:56 36.4 C L 60 17 115/67 96 O2 Del Method O2 Flow Rate 03/22/24 17:16 03/22/24 17:15 03/22/24 17:15 Nasal Cannula 2 03/22/24 17:12 03/22/24 17:10 Room Air 03/22/24 17:09 03/22/24 16:56 Room Air Recovery Score Activity: Moves 4 extremities Respiration: Deep Breath/Cough Circulation: +/-20% PreAnes Value Consciousness: Fully Awake Oxygen Saturation: > 92% On Room Air Discharge Sedation Level of Care: Fast Track Phase II Post Sedation Plan On clinical assessment, the patient appears to have tolerated the sedation without complications. Patient is recovering as anticipated. Patient will continue to be monitored by nursing and may be discharged when sedation discharge criteria are met per below protocol. Upon Completions of procedure up to 15 minutes continue every 5 minute vital signs and the P.A.R. score; then discharge to a Phase I or Fast Track to Phase II per the following guidelines: * Discharge Patient to appropriate Phase II area if PAR is 8 or greater or return to pre- procedure baseline. The post - procedure orders will be as directed. * If PAR score is less than 8 or not return to pre-procedure baseline then patient will follow Phase I monitoring till PAR is reached for Phase II. The Phase I may be done in procedure room or may call to secure a Phase I area. * If naloxone or flumazenil are used for reversal, hold in Phase I for continued monitoring from when last reversal dose was given for a minimum of 60 minutes or longer pending the nurse and/or physician discretion of patient condition before discharge to Phase II. Please call the Sedation Physician to re-evaluate and complete post-note for discharge to Phase II area. Do NOT discharge from procedure sedation or Phase 1 until post- sedation evaluation note is complete by procedure /sedation MD Sedation Discharge Instructions to be given to the patient at discharge to home. [facility] Procedure Codes (Charges) Indication for Procedure Indication for procedure: Inferior STEMI Sedation/Anesthesia Procedure 1: Sedation/Anesthesia: 57331 Mod Sedation by the same physician;Init15 Min Child Age 5 & Up (Initial 15 min, start time 1734) Total Sedation Time (minutes): 27 Procedure 2: Sedation/Anesthesia: 41265 Mod Sedation by the same physician; Ea [id number] Minutes (Additional 12 minutes, end time 1801) Total Sedation Time (minutes): 27
[2024-03-22] MEDS ORDERED: DEXTROSE 50% 50 ML SYRINGE IV PRN (18:37)
[2024-03-22] MEDS ORDERED: GLUCOSE 10 TAB/TUBE PO PRN (18:37)
[2024-03-22] MEDS ORDERED: GLUCAGON FOR INJ 1 MG VIAL SQ PRN (18:37)
[2024-03-22] MEDS ORDERED: GLUCOSE 40% GEL 15 GM TUBE PO PRN (18:37)
[2024-03-22] MEDS ORDERED: CARBOHYDRATES FOR HYPOGLYCEMIA PO PRN (18:37)
--- NOTE | 2024-03-22 18:38 | Cardiac Catheterization ---
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 Clinical evaluation leading to the procedure CAD Presenation: STEMI Anginal Classification: CCS IV Heart Failure: No Cardiogenic Shock within 24 Hours: No Cardiac Arrest within 24 Hours: No Imaging Studies Past 6 Months: No STEMI OR Non-STEMI Symptom Onset Date: 03/22/24 Symptom Onset Time: 16:00 Thrombolytics: No Coronary Anatomy Dominant: Right Left Main (% Stenosis): Normal LAD (% Stenosis): Mid (40 to 50%) and Distal (70 to 80%, 95%) D1 (% Stenosis): Normal Circumflex (% Stenosis): Mid (40%) OM1 (% Stenosis): Normal (Diffuse mild) OM2 (% Stenosis): Normal RCA (% Stenosis): Proximal (40 to 50%), Mid (40%) and Distal (100%) R PDA (% Stenosis): Normal (Diffuse mild to moderate) R PL1 (% Stenosis): Normal (Diffuse mild to moderate) Diagnostic Physicians Name: Sincere Liu MD, PhD Closure Device Percutaneous Entry Location: Radial Closure Device: Radial Band Recommendations: Medical Therapy and/or Counseling and PCI without planned CABG PCI Indication: PCI for STEMI - Stable First Noted: First EKG Lesion Segment Name: Distal RCA Culprit Artery: Yes Stenosis Prior to Rx (%): 100% Chronic Total Occlusion: No Pre-Procedure JESSICA Flow: 0 Previously Treated Lesion: No Lesion Complexity: Non-High/Non-C Lesion Length (mm): 17 Thrombus Present: Yes Bifurcation Lesion: No Guidewire Across Lesion: Yes Intraprocedure Events Significant Disection: No Perforation: No Cardiac Cath Procedure Full Procedure Date March 22, 2024 Pre-Procedure Diagnosis Pre-Procedure Diagnosis: STEMI AUC Score AUC Score: 09 Post-Procedure Diagnosis Post-Procedure Diagnosis: Severe CAD and Successful PCI Procedure(s) Performed Procedure(s) Performed: Coronary Angiography and Drug Eluting Stent Business Banking Sales Assistant Sincere Liu MD, PhD Estimated Blood Loss Estimated Blood Loss: 5 cc Medication(s) Medication(s): Atropine, Fentanyl, Heparin, Integrilin, Lidocaine 1%, Nicardipine, Nitroglycerin and Versed Summary of Findings Patient was brought to the cardiac catheterization suite where he was shaved and prepped in a sterile fashion. Sedated using IV Versed and fentanyl. Soft tissues of the right wrist were anesthetized using 2 mL of 1% Xylocaine. The right radial artery was accessed with a modified Seldinger technique and a 6 Panamanian radial artery glide sheath was placed. Patient was provided anticoagulation with IV heparin and antispasmodics including nicardipine and nitroglycerin. All catheters were advanced and exchanged over a 0.035 J-tip wire. Left coronary angiography was performed in orthogonal views with a 6 Panamanian JR4 guide catheter. We then proceeded immediately to PCI. ACT was checked and additional heparin was provided as needed throughout the case to maintain therapeutic anticoagulation. Using a 6 Panamanian JR4 guide catheter, a BMW reversal guidewire was advanced and positioned distally in the RCA. Then, a guide liner extension catheter was advanced over the guidewire into and through the proximal portion of the RCA. Through this, a 2.5 x 12 mm trek balloon was advanced and positioned across the lesion. Predilated 3 times at 14 vince. Collection Agent angiography was performed. Patient was started on Integrilin as a double bolus administration followed by drip. 3.5 x 22 mm Eber drug-eluting stent then positioned across the lesion where it was initially deployed at 12 vince. The stent balloon was then reinflated up to 15 vince. Stent balloon was removed. Postdilatation using a 4.0 x 12 mm NC trek balloon. 15 vince in the mid stent and 16 vince in the proximal stent. Noncompliant balloon removed. Final angiography was performed. We next completed the diagnostic catheterization. The guide catheter was exchanged over the J-wire for a 5 Panamanian JL 3.5 diagnostic catheter. Left coronary angiography was performed in orthogonal views. All catheters were removed. ACT was checked. Radial artery sheath was removed and hemostasis was obtained using the TR band. Patient was hemodynamically stable and asymptomatic. He was then transported to the ICU for further workup and management. This ended the case. Coronary angiography findings: LGR-[id number] vessel bifurcating into the LAD and circumflex. No angiographically significant disease. DMM-[id number]-ulazmaz and transapical vessel. Proximally there is mild diffuse less than 20% stenosis. Gives a septal branch and at the same level a medium to large caliber branching first diagonal. The diagonal has mild less than 30% scattered plaques. Mid LAD has diffuse disease appearing 40 to 50% stenosed. The early distal vessel has 70 to 80% stenosis and then there is a segment after a very large septal branch which has 95% diffuse stenosis. LCx-large and nondominant. Travels in the AV groove where the proximal segment has mild luminal irregularities. Gives a small OM1 with diffuse mild disease. The mid AV groove vessel has 40% stenosis and then provides a large branching OM2. OM 2 has no more than mild luminal irregularities. The distal AV groove circumflex becomes small and then terminates. RCA-this is a very large dominant vessel. It has a more's crook origin with a 40 to 50% narrowing. The mid vessel that has calcified up to 40% stenosis. The vessel is ectatic throughout. In the early distal vessel there is a 100% occlusion with JESSICA 0 flow and staining consistent with thrombus. This is the culprit for inferior ST elevation CO. PCI of RCA-0% residual stenosis post PCI No evidence of dissection or perforation post PCI JESSICA-3 flow post PCI After stenting, there is seen a large caliber distal RCA with mild ectasia that bifurcates into a large caliber very long PDA which reaches the apex and a large caliber multi branching posterolateral. There is diffuse mild to moderate less than 50 to 60% stenosis in both the PDA and the posterolateral branch. Initially some residual distal clot which resolved with Integrilin administration. Summary: 1. Severe multivessel coronary artery disease. RCA is culprit for acute ST elevation CO. 2. Successful PCI of the RCA using a large caliber drug-eluting stent. Mild and moderate residual disease in the RCA and its branches as described. 3. Severe residual coronary disease in the LAD as described. Not culprit for this admission. 4. Dual antiplatelet therapy with aspirin and Brilinta to complete 1 to 2 years. We will continue with the Integrilin drip for a few hours and then discontinue it. 5. Initiate guideline directed medical therapy for secondary prevention of coronary disease to include; aspirin, beta-dalila, high intensity statin therapy, and continue LEANN inhibitor. Hemodynamics Rest Ao:: 123/71 mmHg Final Ao: 107/62 mmHg LV: Not performed Recommendations Recommendations: Medical Therapy and/or Counseling and PCI without planned CABG Radiation Exposure (mGy) 1863 mGy, fluoroscopy time 9.3 minutes Contrast (mls) 185 mL Anesthesia 1 mg Versed, 25 mcg fentanyl. Start time 1734, end time 1801 Procedural Complication(s) None Disposition ICU I attest to the content of the Intraoperative Record and any orders documented therein. Any exceptions are noted below. [facility] Card Cath Procedure Codes Cardiac Catheterization Procedure 1: Cardiovascular Cath Procedures: 42436 Coronaries Moderate Sedation Procedure 1: Sedation/Anesthesia: 05670 Mod Sedation by the same physician;Init15 Min Child Age 5 & Up (Initial 15 minutes, start 1734) Procedure 2: Sedation/Anesthesia: 87948 Mod Sedation by the same physician; Ea [id number] Minutes (Additional 12 minutes, End 1801) Stenting Procedure 1: Cardiovascular Stent Procedures: 60800 Perc transluminal revascularization of acute sub/total occl, aMI PG Care Time/CCT Total # of Minutes Spent Total Time Spent with Patient: Total time spent is greater than 50% in coordination of care (as documented) at patient's floor/unit and/or counseling patient:
[2024-03-22 18:42] LABS: Magnesium 1.6 mg/dl (1.7-2.4)
[2024-03-22] MEDS: EPTIFIBATIDE 75 MG/100 ML VIAL IV SCH (19:00)
[2024-03-22 19:02] LABS: Basophils # (auto) 0.09 K/uL (0.00-0.20); Basophils % (auto) 0.6 %; Eosinophils # (auto) 0.21 K/uL (0.00-0.50); Eosinophils % (auto) 1.4 %; Hematocrit (blood only) 39.9 % (42.0-52.0); Hemoglobin 13.8 g/dl (14.0-18.0); Immature Granulocytes # (auto) 0.06 K/uL (0.01-0.20); Immature Granulocytes % (auto) 0.4 %; Lymphocytes # (auto) 1.58 K/uL (1.20-3.40); Lymphocytes % (auto) 10.2 %; Mean Corpuscular Hemoglobin 32.4 pg (25.0-34.0); Mean Corpuscular Hgb Conc 34.6 g/dL (32.0-36.0); Mean Corpuscular Volume 93.7 fL (80.0-100.0); Mean Platelet Volume 8.9 fL (9.4-12.4); Monocytes # (auto) 0.71 K/uL (0.11-0.59); Monocytes % (auto) 4.6 %; Neutrophils % (auto) 82.8 %; Platelet Count 219 K/uL (130-400); RDW Coefficient of Variation 12.5 % (11.5-14.5); RDW Standard Deviation 42.8 fL (36.4-46.3); Red Blood Count 4.26 M/uL (4.70-6.10); White Blood Count 15.45 K/ul (4.8-10.8)
--- NOTE | 2024-03-22 19:13 | Cardiology Consultation ---
Date of Consultation March 22, 2024 Assessment & Plan (1) ST elevation myocardial infarction (STEMI): Patient has severe multivessel disease. Acute lesion was thrombosed RCA which was treated successfully with a large caliber drug-eluting stent. He will remain on dual antiplatelet therapy with aspirin 81 mg daily and Brilinta 90 mg p.o. twice daily. We are completing a brief course of Integrilin drip because of his heavy thrombus burden. However we do not want to extend this very long because of increased risk of bleeding. He will be placed on guideline directed medical therapy for secondary prevention of coronary disease. This includes the low-dose aspirin, high intensity statin therapy, LEANN inhibitor, and beta- dalila. We will adjust his regimen throughout the course of his stay. Will obtain an echocardiogram to evaluate LV function, wall motion abnormalities, or any other structural or functional abnormalities which need to be treated. He will remain in the ICU for 24 hours post PCI. I will likely do staged PCI on the LAD on . Strongly encouraged him to discontinue tobacco use. More strongly encouraged him to participate in cardiac rehab after discharge. Consult has been placed. (2) Hyperlipidemia: Patient is high risk (diabetes and coronary disease). High intensity statin therapy ongoing. He was previously on simvastatin but I have changed him to a atorvastatin. His last LDL was pretty good but we may need to lower it even further. (3) Hypertension: Blood pressure was close to target. Reducing the lisinopril to 20 mg daily so that we may initiate metoprolol tartrate 25 mg p.o. twice daily without causing him to be hypotensive. I am also going to hold the hydrochlorothiazide for now. Further adjustments pending results of his echo and how he responds to his current regimen. History of Present Illness Reason for Consultation: Acute inferior ST elevation IN Attending Physician: Alessio Monroy MD History of Present Illness 63-year-old gentleman who has been diabetic for [address] Flynn. Comorbid disease includes tobacco abuse, hypertension, and dyslipidemia. He also has a very strong family history of coronary artery disease, diabetes, hypertension, and dyslipidemia. His mother had myocardial infarction in her 50s. Multiple siblings with cardiac disease or risk factors. He is accompanied by his sister. Patient was working in his yard digging post holes. Sudden onset severe chest pain with diaphoresis and shortness of breath. He was brought to the emergency department where initial EKG demonstrated significant inferior ST elevations with reciprocal changes. A "heart alert was called and on my arrival the patient continued with 5-6 out of 10 chest discomfort. I reviewed his EKG and recommended that we proceed emergently to the cardiac catheterization suite for catheterization and PCI as indicated. Patient was hemodynamically stable. We discussed risk benefits and alternatives to catheterization. He voiced understanding and wished to proceed. Patient was taken to the [facility] where he underwent diagnostic coronary angiography via the radial artery approach. He had stenting of the large occluded RCA with good angiographic result and resolution of both symptoms and EKG changes. He is now admitted to the intensive care unit for further workup and management. 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 Allergies Allergy/AdvReac Type Severity Reaction Status Date / Time No Known Drug Allergies Allergy Verified 12/03/23 07:30 Home Medications Medication Instructions Recorded Confirmed Type aspirin 81 mg tablet,delayed 81 mg PO DAILY #90 tabs 06/11/19 12/03/23 History release multivitamin 1 tab PO DAILY 06/11/19 12/03/23 History lancets 28 gauge (FreeStyle #100 ea 06/16/19 12/03/23 Rx Lancets) blood-glucose meter (FreeStyle #1 ea 07/06/19 12/03/23 Rx Lite Meter kit) ascorbate calcium (vitamin C) 500 500 mg PO DAILY 12/14/19 12/03/23 History mg tablet blood sugar diagnostic (FreeStyle #200 ea 12/22/19 12/03/23 Rx Lite Strips) glipizide 5 mg tablet, extended 5 mg PO BID #180 tabs 03/24/23 12/03/23 Rx release 24 hr metformin 500 mg tablet 1,000 mg (2 x 500 mg) PO BID #360 04/23/23 12/03/23 Rx tabs lisinopril 40 mg tablet 40 mg PO DAILY #90 tabs 06/26/23 12/03/23 Rx simvastatin 20 mg tablet 20 mg PO HS #90 tabs 06/30/23 12/03/23 Rx dulaglutide 3 mg/0.5 mL 3 mg (0.5 mL) subcut WK #6 mL 10/22/23 12/03/23 Rx subcutaneous pen injector hydrochlorothiazide 12.5 mg tablet 12.5 mg PO DAILY #90 tabs 01/11/24 Rx dulaglutide 1.5 mg/0.5 mL 1.5 mg (0.5 mL) subcut .COMPLEX #6 02/16/24 Rx subcutaneous pen injector syringes (Trulicity) Patient History Medical History Sore throat Cough productive of purulent sputum Nasal congestion Bacterial sinusitis Arthritis BPH (benign prostatic hyperplasia) Hypertension Hyperlipidemia Tick bite Surgical History S/P trigger finger release History of colonoscopy History of tooth extraction History of ear surgery RT EAR>CYST REMOVED History of vasectomy Hx of tonsillectomy Family History Brother Myocardial infarction Mother Diabetes Myocardial infarction Cancer Sister Diabetes Lung cancer Cancer Father Lung cancer Unknown Hypertension Other No family history of adverse response to anesthesia Denies family history of Bleeding disorder Social History Smoking Status: Current every day smoker Age Started Using Tobacco: 19; packs per day: 0.5; Cigarettes Per Day: 3-10 DAILY>ADVISED; Second Hand Exposure: No; Do You Dip or Chew Tobacco: No; Hx Alcohol Use: No Hx Substance Use: No Preferred Language: Macedonian Communication Ability: Effective Visual Impairment: No Limitations Hearing Ability: Normal 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 Sclera are anicteric. ENMT: Oral mucosa is pink moist and intact Neck: No JVD or bruits appreciated Respiratory: Clear to auscultation bilaterally. No wheezing, rhonchi, or rales. Cardiovascular: Regular rate and rhythm. S4 gallop. Do not appreciate any rubs or murmurs. No edema. Musculoskeletal: no cyanosis or clubbing, extremities motor strength 5/5 (Radial access with band.) Neurologic: Cognition is intact. Speech is fluent. Hearing is mildly diminished. No focal deficits. Psychiatric: A+Ox3, euthymic affect Results & Data Vital Signs (Past 12 Hours) Vital Signs Temp Pulse Pulse Resp BP BP Pulse Ox 03/22/24 18:42 65 19 123/78 96 03/22/24 18:21 77 21 124/74 93 03/22/24 18:20 36.7 C 03/22/24 17:16 58 L 03/22/24 17:15 151/91 H 03/22/24 17:15 61 15 100 03/22/24 17:12 62 19 03/22/24 17:10 63 18 137/82 98 03/22/24 17:09 63 18 03/22/24 16:56 36.4 C L 60 17 115/67 96 O2 Del Method O2 Flow Rate 03/22/24 18:42 03/22/24 18:21 Room Air 03/22/24 18:20 03/22/24 17:16 03/22/24 17:15 03/22/24 17:15 Nasal Cannula 2 03/22/24 17:12 03/22/24 17:10 Room Air 03/22/24 17:09 03/22/24 16:56 Room Air PG Care Time/CCT Total # of Minutes Spent Total Time Spent with Patient: Total time spent is greater than 50% in coordination of care (as documented) at patient's floor/unit and/or counseling patient: I spent a total of 74 minutes critical care time in the initial evaluation and examination of this patient, review of the records. Discussion with family and the ER staff. Further discussion with the [facility] staff and the ICU. Formulation and implementation of a plan of care and all associated documentation. This time is exclusive of the time spent in the procedure. Coding Level of Care Code 90812 CRITICAL CARE 1ST 30-74M Diagnoses ST elevation myocardial infarction (STEMI) I21.3 Hyperlipidemia E78.5 Hypertension I10 Time Spent (min) 74
[2024-03-22] MEDS ORDERED: Nursing to Pharmacy Communication SCH (19:15)
[2024-03-22] MEDS: IODIXANOL (VISIPAQUE) 320 MG/ML 100ML IV ONE (19:31)
[2024-03-22] MEDS: OPTIRAY 350 ONE (19:32)
[2024-03-22] MEDS: ONDANSETRON INJ 2 MG/ML 2 ML VIAL ONE (19:33)
--- NOTE | 2024-03-22 19:59 | Critical Care Consultation ---
Date of Consultation March 22, 2024 Assessment & Plan (1) ST elevation myocardial infarction (STEMI): EKG with inferior lateral ST elevation, taken emergently to [facility] following heart alert in the ER. Found to have culprit stenosis of RCA for which she received GAYE x 1. Nonculprit disease of LAD with plan to undergo additional stent tomorrow. Admitted to ICU post cath. - f/u TTE - Trend troponin for peak - heart healthy diet. NPO at midnight - integrilin drip per Cardiology - ACEI, BB, statin, ASA, brillinta - maximize electrolytes - continuous monitoring on telemetry (2) Hyperlipidemia: continue statin f/u lipid panel (3) Hypertension: currently normotensive, continue MTP, hydrochlorothiazide (4) Type 2 diabetes mellitus: hold metformin and glipizide in favor of sliding scale/ basal bolus. ICU hyperglycemic protocol History of Present Illness Attending Physician: Alessio Monroy MD History of Present Illness Patient is a 63-year-old male with past medical history of HTN, HLD, DM type II, smoker (half pack per day), who presented to the emergency department earlier this afternoon after experiencing chest pain 6/10 with associated nausea dizziness and diaphoresis. Patient was found to have inferior lateral ST elevation on EKG and was taken emergently to the [facility] where he received GAYE x 1 to RCA, was also found to have significant disease to the LAD for which she is to undergo additional stenting tomorrow. He arrives to the ICU hemodynamically stable, without acute distress. He currently denies further chest pain, diaphoresis, nausea, or dizziness. He did read denies recent illness, fevers, headache, congestion, cough, shortness of breath, abdominal pain, vomiting, diarrhea, swelling hands or feet, changes in gait. Patient to remain in ICU for further management at this time. Allergies Allergy/AdvReac Type Severity Reaction Status Date / Time No Known Drug Allergies Allergy Verified 12/03/23 07:30 Home Medications Medication Instructions Recorded Confirmed Type aspirin 81 mg tablet,delayed 81 mg PO DAILY #90 tabs 06/11/19 03/22/24 History release multivitamin 1 tab PO DAILY 06/11/19 03/22/24 History lancets 28 gauge (FreeStyle #100 ea 06/16/19 03/22/24 Rx Lancets) blood-glucose meter (FreeStyle #1 ea 07/06/19 03/22/24 Rx Lite Meter kit) ascorbate calcium (vitamin C) 500 500 mg PO DAILY 12/14/19 03/22/24 History mg tablet blood sugar diagnostic (FreeStyle #200 ea 12/22/19 03/22/24 Rx Lite Strips) glipizide 5 mg tablet, extended 5 mg PO BID #180 tabs 03/24/23 03/22/24 Rx release 24 hr metformin 500 mg tablet 1,000 mg (2 x 500 mg) PO BID #360 04/23/23 03/22/24 Rx tabs lisinopril 40 mg tablet 40 mg PO DAILY #90 tabs 06/26/23 03/22/24 Rx simvastatin 20 mg tablet 20 mg PO HS #90 tabs 06/30/23 03/22/24 Rx dulaglutide 3 mg/0.5 mL 3 mg (0.5 mL) subcut WK #6 mL 10/22/23 03/22/24 Rx subcutaneous pen injector hydrochlorothiazide 12.5 mg tablet 12.5 mg PO DAILY #90 tabs 01/11/24 03/22/24 Rx dulaglutide 1.5 mg/0.5 mL 1.5 mg (0.5 mL) subcut .COMPLEX #6 02/16/24 03/22/24 Rx subcutaneous pen injector syringes (Trulicity) Patient History Medical History Sore throat Cough productive of purulent sputum Nasal congestion Bacterial sinusitis Arthritis BPH (benign prostatic hyperplasia) Hypertension Hyperlipidemia Tick bite Surgical History S/P trigger finger release History of colonoscopy History of tooth extraction History of ear surgery RT EAR>CYST REMOVED History of vasectomy Hx of tonsillectomy Family History Brother Myocardial infarction Mother Diabetes Myocardial infarction Cancer Sister Diabetes Lung cancer Cancer Father Lung cancer Unknown Hypertension Other No family history of adverse response to anesthesia Denies family history of Bleeding disorder Social History Smoking Status: Current every day smoker Tobacco Type: Cigarettes Age Started Using Tobacco: 19; packs per day: 0.5; Cigarettes Per Day: 6; Second Hand Exposure: No; Do You Dip or Chew Tobacco: No; Tobacco Cessation Education Requested by Patient: Yes Hx Alcohol Use: Yes Alcohol type: beer Hx Substance Use: No Preferred Language: Ukrainian Communication Ability: Effective Visual Impairment: No Limitations Hearing Ability: Normal Counter Former Required: No Beliefs That Will Affect Care: Sabianist Sabianist Beliefs: Episcopalian marital status: Single Current Living Situation: Alone Current Living Situation Comment: Home alone current occupational status: employed Other Information That Helps Us Care for You: No Feels Safe at Home: Yes Safety Concerns: Feels Safe At This Time Physical Activity Frequency: Does not Exercise Assistive Devices: Glasses Review of Systems Review of Systems: All systems reviewed & are unremarkable except as noted in HPI & below Physical Exam Constitutional: WD/WN, vitals as above cooperative and comfortable Eyes: PERRL, conjunctivae normal, anicteric sclerae ENMT: external ear and nose normal, oropharynx normal Neck: trachea midline, no thyromegaly Respiratory: normal respiratory effort, lungs clear to auscultation Cardiovascular: RRR, no murmur, no edema Heart Sounds: normal S1 and normal S2; no murmur Extremities: no edema Gastrointestinal (Abdomen): normal bowel sounds, soft, nontender, no hepatosplenomegaly Musculoskeletal: no cyanosis or clubbing, extremities motor strength 5/5 Skin: no rashes, warm and dry Neurologic: PERRL, EOMI, accommodation nl, no face palsy, no dysarthria Psychiatric: A+Ox3, euthymic affect Results & Data Results & Data Vital Signs (Past 12 Hours) Vital Signs Temp Pulse Pulse Resp BP BP Pulse Ox 03/22/24 19:15 118/78 03/22/24 19:03 77 21 99 03/22/24 18:45 75 22 96 03/22/24 18:42 65 19 123/78 96 03/22/24 18:40 36.7 C 74 19 123/78 94 03/22/24 18:21 77 21 124/74 93 03/22/24 18:20 03/22/24 18:20 75 03/22/24 18:20 36.7 C 03/22/24 17:16 58 L 03/22/24 17:15 151/91 H 03/22/24 17:15 61 15 100 03/22/24 17:12 62 19 03/22/24 17:10 63 18 137/82 98 03/22/24 17:09 63 18 03/22/24 16:56 36.4 C L 60 17 115/67 96 Pulse Ox O2 Del Method O2 Del Method O2 Flow Rate 03/22/24 19:15 03/22/24 19:03 03/22/24 18:45 Room Air 03/22/24 18:42 03/22/24 18:40 Room Air 03/22/24 18:21 Room Air 03/22/24 18:20 98 Room Air 03/22/24 18:20 03/22/24 18:20 03/22/24 17:16 03/22/24 17:15 03/22/24 17:15 Nasal Cannula 2 03/22/24 17:12 03/22/24 17:10 Room Air 03/22/24 17:09 03/22/24 16:56 Room Air Coding Level of Care Code 75155 IN/OBS CONSULT LVL 2,35M Diagnoses ST elevation myocardial infarction (STEMI) I21.3 Hyperlipidemia E78.5 Hypertension I10 Type 2 diabetes mellitus E11.9 Time Spent (min) 38
[2024-03-22] MEDS ORDERED: [UNRECOGNIZED DRUG - REMARK] ONE (20:00)
[2024-03-22] MEDS: SODIUM CHLORIDE 0.9% 1,000 ML IV SCH (20:26)
[2024-03-22] MEDS: [UNRECOGNIZED DRUG - REMARK] ONE (20:27)
[2024-03-22] MEDS: METOPROLOL TARTRATE 25 MG TAB PO SCH (20:30)
[2024-03-22] MEDS: LANTUS PER UNIT CHARGE SQ SCH (20:42)
[2024-03-22] MEDS: INSULIN ASPART PER UNIT CHARGE SC SCH (20:42)
[2024-03-22] MEDS ORDERED: METOPROLOL TARTRATE 25 MG TAB PO SCH (21:00)
[2024-03-22] MEDS ORDERED: ICU Protocol for HYPERglycemia SCH ×2 (21:00)
[2024-03-23 03:21] LABS: BUN Creatinine Ratio 23.6 (10-20); Calcium 9.5 mg/dl (8.6-10.3); Creatinine Clr Calc Pharmacy 80.1 ml/min; Est GFR (African American) 85.5 ml/min; Est GFR (Non-African American) 73.8 ml/min; Magnesium 1.6 mg/dl (1.7-2.4); Phosphorus 4.1 mg/dl (2.5-4.9); Potassium 3.9 mmol/L (3.5-5.1)
[2024-03-23 03:36] LABS: Basophils # (auto) 0.06 K/uL (0.00-0.20); Basophils % (auto) 0.5 %; Eosinophils # (auto) 0.18 K/uL (0.00-0.50); Eosinophils % (auto) 1.6 %; Hemoglobin 12.8 g/dl (14.0-18.0); Immature Granulocytes # (auto) 0.03 K/uL (0.01-0.20); Immature Granulocytes % (auto) 0.3 %; Lymphocytes # (auto) 2.76 K/uL (1.20-3.40); Lymphocytes % (auto) 24.7 %; Mean Corpuscular Hemoglobin 32.1 pg (25.0-34.0); Mean Corpuscular Hgb Conc 34.6 g/dL (32.0-36.0); Mean Corpuscular Volume 92.7 fL (80.0-100.0); Mean Platelet Volume 9.2 fL (9.4-12.4); Monocytes # (auto) 0.91 K/uL (0.11-0.59); Monocytes % (auto) 8.1 %; Neutrophils # (auto) 7.24 K/uL (1.40-6.50); Neutrophils % (auto) 64.8 %; Platelet Count 238 K/uL (130-400); RDW Coefficient of Variation 12.4 % (11.5-14.5); RDW Standard Deviation 42.7 fL (36.4-46.3); Red Blood Count 3.99 M/uL (4.70-6.10); White Blood Count 11.18 K/ul (4.8-10.8)
[2024-03-23 03:54] LABS: Troponin I High Sensitivity 57919.5 pg/ml (0-20)
[2024-03-23] MEDS ORDERED: [UNRECOGNIZED DRUG - REMARK] ONE (06:00)
--- NOTE | 2024-03-23 07:16 | Critical Care Progress Note ---
Date of Service March 23, 2024 Assessment & Plan (1) ST elevation myocardial infarction (STEMI): (2) Hyperlipidemia: Plan: continue statin f/u lipid panel (3) Hypertension: (4) Type 2 diabetes mellitus: Plan -- STEMI 1 drug-eluting stent in RCA Nonculprit disease of LAD with plan to undergo additional stent tomorrow - ACEI, BB, statin, ASA, brillinta --History of hypertension/dyslipidemia On lisinopril and simvastatin at home Currently on beta-dalila and lisinopril --Diabetes type 2 Continue with ICU hypoglycemia protocol --Prophylaxis VTE: None GI: None Lines: Peripheral Diet: Cardiac Plan: In/out: -110, urine output 1000 mL Magnesium being replaced Disposition as per cardiology Please note the above document was generated using voice recognition software. It may contain grammatical, syntax or spelling errors.Any formal questions or concerns about the content, text or information contained within the body of this dictation should be directly addressed to the provider for clarification. Admission and Anticipated Discharge Date Admission Date: March 22, 2024 Subjective Patient seen and examined at bedside. No acute distress, notable symptoms overnight He was saturating 95% on room air. Heart rate was in the low 60s. Denies any chest pain, no shortness of breath Stated that he felt much better compared to when he came to the hospital Denies any nausea vomiting Fair appetite Review of Systems 2 Review of Systems: All systems reviewed & are unremarkable except as noted in Subjective Physical Exam 2 Physical Exam: Constitutional: No acute distress HEENT: EOMI, PERRLA Respiratory system: Good air entry bilaterally, no wheeze, no rhonchi, mild crackles bilateral lower lobes CVS: S1-S2 positive, no murmurs or gallops Abdomen: Soft, nontender, nondistended, positive bowel sounds x4 Extremities: +2 pulses bilaterally radialis/ dorsalis pedis, no cyanosis, no edema Neuro: Awake alert oriented x3 Psych: Normal mood and affect G/U: No Khanna Skin: no rashes, warm and dry Lymphatic: no cervical or axillary lymphadenopathy Results & Data Results & Data Vital Signs (Past 12 Hours) Vital Signs Temp Pulse Pulse Resp BP BP Pulse Ox 03/23/24 04:35 57 L 8 L 93 03/23/24 04:20 56 L 15 96 03/23/24 03:45 37.2 C 03/23/24 03:42 59 L 8 L 88 L 03/23/24 03:24 56 L 14 97 03/23/24 02:36 71 21 98 03/23/24 02:09 60 5 L 95 03/23/24 01:30 60 20 96 03/23/24 01:00 60 16 95 03/23/24 01:00 102/66 03/23/24 00:33 59 L 7 L 95 03/23/24 00:03 60 17 95 03/23/24 00:00 59 L 95/60 L 03/23/24 00:00 59 L 03/22/24 23:30 60 12 96 03/22/24 23:00 37.1 C 03/22/24 23:00 107/62 03/22/24 23:00 59 L 10 L 99 03/22/24 22:30 59 L 12 98 03/22/24 22:00 61 117/63 03/22/24 22:00 61 14 98 03/22/24 21:33 65 15 98 03/22/24 21:31 58 L 03/22/24 21:30 59 L 112/75 03/22/24 21:03 60 10 L 96 03/22/24 20:30 65 21 99 03/22/24 20:30 122/73 03/22/24 20:05 03/22/24 20:03 75 20 100 03/22/24 19:36 82 22 99 O2 Del Method 03/23/24 04:35 03/23/24 04:20 03/23/24 03:45 Room Air 03/23/24 03:42 03/23/24 03:24 03/23/24 02:36 03/23/24 02:09 03/23/24 01:30 03/23/24 01:00 03/23/24 01:00 03/23/24 00:33 03/23/24 00:03 03/23/24 00:00 03/23/24 00:00 03/22/24 23:30 03/22/24 23:00 Room Air 03/22/24 23:00 03/22/24 23:00 03/22/24 22:30 03/22/24 22:00 03/22/24 22:00 03/22/24 21:33 03/22/24 21:31 03/22/24 21:30 03/22/24 21:03 03/22/24 20:30 03/22/24 20:30 03/22/24 20:05 Room Air 03/22/24 20:03 03/22/24 19:36 Laboratory Results 03/23/24 02:50 03/23/24 02:50 Coding Level of Care Code 71959 SUB INP/OBS CARE 2/35MIN Diagnoses ST elevation myocardial infarction (STEMI) I21.3 Involved coronary artery: unspecified coronary artery Hyperlipidemia E78.5 Hypertension I10 Type 2 diabetes mellitus E11.9 (1) ST elevation myocardial infarction (STEMI) Involved coronary artery: unspecified coronary artery Qualified Code(s): I 21.3 - ST elevation (STEMI) myocardial infarction of unspecified site
[2024-03-23] MEDS: POTASSIUM CHLORIDE 20 MEQ/15 ML UDC PO STA (07:33)
[2024-03-23] MEDS: MAGNESIUM SULFATE / D5W 1 GM/100 ML BAG IV SCH (07:33)
[2024-03-23] MEDS: ATORVASTATIN 40 MG TAB PO SCH (08:11)
[2024-03-23] MEDS: POTASSIUM CHLORIDE CRTAB 20 MEQ TABCR PO STA (08:11)
[2024-03-23] MEDS: ASPIRIN 81 MG ECTAB PO SCH (08:11)
[2024-03-23] MEDS: TICAGRELOR 90 MG TAB PO SCH (08:12)
[2024-03-23] MEDS: lisinopril 20 MG TAB PO SCH (08:12)
[2024-03-23] MEDS ORDERED: ATORVASTATIN 40 MG TAB PO SCH (09:00)
[2024-03-23] MEDS ORDERED: ASPIRIN 81 MG ECTAB PO SCH (09:00)
[2024-03-23] MEDS ORDERED: hydroCHLOROthiazide 25 MG TAB PO SCH (09:00)
[2024-03-23] MEDS ORDERED: lisinopril 40 MG TAB PO SCH (09:00)
[2024-03-23] MEDS ORDERED: TICAGRELOR 90 MG TAB PO SCH (09:00)
[2024-03-23] MEDS: lisinopril 10 MG TAB PO SCH (09:41)
--- NOTE | 2024-03-23 09:48 | Electrocardiogram Report ---
Test Reason : Blood Pressure : / mmHG Vent. Rate : 058 BPM Atrial Rate : 058 BPM P-R Int : 242 ms QRS Dur : 106 ms QT Int : 380 ms P-R-T Axes : 042 061 100 degrees QTc Int : 373 ms Sinus bradycardia with 1st degree A-V block ST elevation consider inferolateral injury or acute infarct ACUTE DC / STEMI Consider right ventricular involvement in acute inferior infarct Abnormal ECG No previous ECGs available Confirmed by Tomás Cee ([id number]) on 03/23/2024 9:48:15 AM Referred By: REFERRED SELF Confirmed By:Obey Cee
--- NOTE | 2024-03-23 09:49 | Electrocardiogram Report ---
Test Reason : Blood Pressure : / mmHG Vent. Rate : 065 BPM Atrial Rate : 065 BPM P-R Int : 230 ms QRS Dur : 100 ms QT Int : 388 ms P-R-T Axes : 073 004 074 degrees QTc Int : 403 ms Sinus rhythm with 1st degree A-V block Inferior infarct , age undetermined Abnormal ECG When compared with ECG of 22-MAR-2024 17:01, ST less elevated in Inferior leads Non-specific change in ST segment in Lateral leads Nonspecific T wave abnormality now evident in Inferior leads Confirmed by Tomás Cee ([id number]) on 03/23/2024 9:48:57 AM Referred By: REFERRED SELF Confirmed By:Obey Cee
[2024-03-23] MEDS: PNEUMOCOCCAL VACCINE (PCV20) 20-VAL CONJ-DIP CRM/PF 0.5 ML SYR IM ONE (09:50)
--- NOTE | 2024-03-23 09:57 | Electrocardiogram Report ---
Test Reason : Blood Pressure : / mmHG Vent. Rate : 064 BPM Atrial Rate : 064 BPM P-R Int : 226 ms QRS Dur : 098 ms QT Int : 394 ms P-R-T Axes : 034 -18 -43 degrees QTc Int : 406 ms Sinus rhythm with 1st degree A-V block possible Inferior infarct (cited on or before 22-MAR-2024) Abnormal ECG When compared with ECG of 22-MAR-2024 18:39, (unconfirmed) Inverted T waves have replaced nonspecific T wave abnormality in Inferior leads Confirmed by Tomás Cee ([id number]) on 03/23/2024 9:57:25 AM Referred By: REFERRED SELF Confirmed By:Obey Cee
--- NOTE | 2024-03-23 15:19 | Hospitalist Progress Note ---
Date of Service March 23, 2024 Assessment & Plan (1) ST elevation myocardial infarction (STEMI): Plan: 63-year-old man with history of ongoing smoking presented with inferior STEMI. Underwent coronary angiography with GAYE to right coronary artery. He also has a significant LAD lesion, PCI is planned but deferred until 03/24 troponin has peaked at 61,000 and now downtrending. Remains chest pain-free echocardiogram is pending EKG this morning shows expected evolution of inferior infarct, inverted T waves have replaced the ST elevations. personally reviewed the EKG tracing plan to continue aspirin and Brilinta, continue metoprolol and atorvastatin decrease lisinopril from 20 mg down to 10 mg to allow more blood pressure for beta-blockade counseled on risks of early discontinuation of DAPT with patient including stent thrombosis causing severe myocardial infarction he has Brilinta coupon at bedside (2) Type 2 diabetes mellitus: Plan: Type II DM. A1c was 7.3 in November Metformin, glipizide held while inpatient Patient is on dulaglutide [employer] Glucose checks AC/at bedtime blood glucose at goal in 170s (3) Hypertension: Plan: Hypertension Lisinopril reduced as noted, metoprolol started (4) Hyperlipidemia: Plan: - LDL was 59 in November on simvastatin. changed to Atorvastatin as noted A.m. lipid panel pending (5) BPH (benign prostatic hyperplasia): Plan: Bladder scan as needed, may add Flomax if needed Plan DVT prophylaxis: Currently on aspirin and Brilinta, ambulatory Admission and Anticipated Discharge Date Admission Date: March 22, 2024 Subjective Feels well, no further chest pain after PCI yesterday. No dyspnea or cough. Physical Exam 2 Physical Exam: PHYSICAL EXAMINATION Last 24h vital signs reviewed, see documentation in flowsheet General: comfortable appearing, no distress, sitting up in chair having finished breakfast HEENT: Normocephalic, atraumatic, pupils round and equal, sclerae anicteric, no conjunctival injection, moist mucus membranes Lungs: Normal respiratory effort. Clear to auscultation bilaterally. No RRW Heart: Regular rate and rhythm, no murmurs. No JVD Abdomen: Soft, nontender, nondistended. Bowel sounds present. Extremities: Warm, dry, well-perfused. No extremity edema. left wrist arterial puncture site without swelling, left forearm swelling related to hematoma from venous puncture site substantially resolved Neuro: Alert and oriented x 4, face symmetric, moves 4 extremities well Psych: Normal affect and behavior Results & Data Results & Data Vital Signs (Past 12 Hours) Vital Signs Temp Pulse Pulse Resp BP BP Pulse Ox 03/23/24 12:03 60 12 95 03/23/24 12:00 97/60 L 03/23/24 12:00 36.7 C 03/23/24 11:09 59 L 24 106/65 95 03/23/24 10:03 60 13 115/66 97 03/23/24 09:06 67 20 98 03/23/24 08:18 64 13 141/96 H 95 03/23/24 08:00 36.8 C 03/23/24 07:02 59 L 13 121/71 96 03/23/24 06:00 55 L 108/60 03/23/24 05:00 56 L 134/81 03/23/24 04:35 57 L 8 L 93 03/23/24 04:20 56 L 15 96 03/23/24 04:00 59 L 120/66 03/23/24 03:45 37.2 C 03/23/24 03:42 59 L 8 L 88 L 03/23/24 03:24 56 L 14 97 O2 Del Method 03/23/24 12:03 03/23/24 12:00 03/23/24 12:00 03/23/24 11:09 03/23/24 10:03 03/23/24 09:06 03/23/24 08:18 03/23/24 08:00 03/23/24 07:02 Room Air 03/23/24 06:00 03/23/24 05:00 03/23/24 04:35 03/23/24 04:20 03/23/24 04:00 03/23/24 03:45 Room Air 03/23/24 03:42 03/23/24 03:24 Laboratory Results 03/23/24 02:50 03/23/24 02:50 PG Care Time/CCT Total # of Minutes Spent Total Time Spent with Patient: Total time spent is greater than 50% in coordination of care (as documented) at patient's floor/unit and/or counseling patient: Coding Level of Care Code 98436 SUB INP/OBS CARE 3/50MIN Diagnoses ST elevation myocardial infarction (STEMI) I21.3 Involved coronary artery: unspecified coronary artery Type 2 diabetes mellitus E11.9 Hypertension I10 Hyperlipidemia E78.5 BPH (benign prostatic hyperplasia) N40.0 (1) ST elevation myocardial infarction (STEMI) Involved coronary artery: unspecified coronary artery Qualified Code(s): I 21.3 - ST elevation (STEMI) myocardial infarction of unspecified site
[2024-03-23 18:58] LABS: Basophils # (auto) 0.04 K/uL (0.00-0.20); Basophils % (auto) 0.4 %; Eosinophils # (auto) 0.24 K/uL (0.00-0.50); Eosinophils % (auto) 2.2 %; Hematocrit (blood only) 34.4 % (42.0-52.0); Hemoglobin 11.9 g/dl (14.0-18.0); Immature Granulocytes # (auto) 0.04 K/uL (0.01-0.20); Immature Granulocytes % (auto) 0.4 %; Lymphocytes # (auto) 2.67 K/uL (1.20-3.40); Lymphocytes % (auto) 24.7 %; Mean Corpuscular Hemoglobin 32.2 pg (25.0-34.0); Mean Corpuscular Hgb Conc 34.6 g/dL (32.0-36.0); Mean Corpuscular Volume 93.2 fL (80.0-100.0); Monocytes # (auto) 0.85 K/uL (0.11-0.59); Monocytes % (auto) 7.9 %; Neutrophils # (auto) 6.98 K/uL (1.40-6.50); Neutrophils % (auto) 64.4 %; Platelet Count 214 K/uL (130-400); RDW Coefficient of Variation 12.7 % (11.5-14.5); RDW Standard Deviation 43.8 fL (36.4-46.3); Red Blood Count 3.69 M/uL (4.70-6.10); White Blood Count 10.82 K/ul (4.8-10.8)
--- NOTE | 2024-03-23 19:41 | XCELERA ---
[id number] \\[id number]
[2024-03-24 05:11] LABS: Basophils # (auto) 0.04 K/uL (0.00-0.20); Basophils % (auto) 0.4 %; Eosinophils # (auto) 0.24 K/uL (0.00-0.50); Eosinophils % (auto) 2.5 %; Hematocrit (blood only) 33.5 % (42.0-52.0); Hemoglobin 11.3 g/dl (14.0-18.0); Immature Granulocytes # (auto) 0.03 K/uL (0.01-0.20); Immature Granulocytes % (auto) 0.3 %; Lymphocytes # (auto) 2.49 K/uL (1.20-3.40); Lymphocytes % (auto) 26.3 %; Mean Corpuscular Hemoglobin 31.7 pg (25.0-34.0); Mean Corpuscular Hgb Conc 33.7 g/dL (32.0-36.0); Mean Corpuscular Volume 94.1 fL (80.0-100.0); Mean Platelet Volume 8.9 fL (9.4-12.4); Monocytes # (auto) 0.78 K/uL (0.11-0.59); Monocytes % (auto) 8.3 %; Neutrophils # (auto) 5.87 K/uL (1.40-6.50); Neutrophils % (auto) 62.2 %; Platelet Count 197 K/uL (130-400); RDW Coefficient of Variation 12.7 % (11.5-14.5); RDW Standard Deviation 44.4 fL (36.4-46.3); Red Blood Count 3.56 M/uL (4.70-6.10); White Blood Count 9.45 K/ul (4.8-10.8)
[2024-03-24 05:58] LABS: BUN Creatinine Ratio 21.3 (10-20); Calcium 8.7 mg/dl (8.6-10.3); Creatinine Clr Calc Pharmacy 95.5 ml/min; Est GFR (African American) 104.7 ml/min; Est GFR (Non-African American) 90.4 ml/min; Magnesium 1.9 mg/dl (1.7-2.4); Phosphorus 2.8 mg/dl (2.5-4.9); Potassium 4.1 mmol/L (3.5-5.1)
--- NOTE | 2024-03-24 07:17 | Hospitalist Progress Note ---
Date of Service March 24, 2024 Assessment & Plan (1) ST elevation myocardial infarction (STEMI): Plan: 63-year-old man with history of ongoing smoking presented with inferior STEMI. Underwent coronary angiography with GAYE to right coronary artery. He also has a significant LAD lesion, PCI is planned but deferred until 03/24 troponin has peaked at 61,000 and now downtrending. Remains chest pain-free echocardiogram reviewed see below plan to continue aspirin and Brilinta, continue metoprolol and atorvastatin PCI of LAD lesion 03/24 - afternoon addendum, successful GAYE placement per prelim report counseled on risks of early discontinuation of DAPT with patient including stent thrombosis causing severe myocardial infarction on 03/24 he has Brilinta coupon at bedside TTE 03/23/24: (2) Type 2 diabetes mellitus: Plan: Type II DM. A1c was 7.3 in November Metformin, glipizide held while inpatient Patient is on dulaglutide [employer] Glucose checks AC/at bedtime blood glucose at goal 03/24 (3) Hypertension: Plan: Hypertension Lisinopril reduced as noted, metoprolol started - well controlled 03/24 (4) Hyperlipidemia: Plan: - LDL was 59 in November on simvastatin. changed to Atorvastatin as noted A.m. lipid panel added on - LDL is 60 (5) BPH (benign prostatic hyperplasia): Plan: Bladder scan as needed, may add Flomax if needed Plan DVT prophylaxis: Currently on aspirin and Brilinta, ambulatory Admission and Anticipated Discharge Date Admission Date: March 22, 2024 Subjective seen in AM feeling well, hungry, no chest pain or dyspnea no further RUE swelling Physical Exam 2 Physical Exam: PHYSICAL EXAMINATION Last 24h vital signs reviewed, see documentation in flowsheet General: comfortable appearing, no distress, sitting up in chair sister visiting HEENT: Normocephalic, atraumatic, pupils round and equal, sclerae anicteric, no conjunctival injection, moist mucus membranes Lungs: Normal respiratory effort. Clear to auscultation bilaterally. No RRW Heart: Regular rate and rhythm, no murmurs. No JVD Abdomen: Soft, nontender, nondistended. Bowel sounds present. Extremities: Warm, dry, well-perfused. No extremity edema. left wrist arterial puncture site without swelling, radial pulse brisk, left forearm swelling resolved Neuro: Alert and oriented x 4, face symmetric, moves 4 extremities well Psych: Normal affect and behavior Results & Data Results & Data Vital Signs (Past 12 Hours) Vital Signs Temp Pulse Pulse Resp BP BP Pulse Ox 03/24/24 06:00 36.6 C 57 L 16 108/62 97 03/24/24 05:06 56 L 14 94 03/24/24 05:00 101/58 L 03/24/24 05:00 58 L 20 101/58 L 94 03/24/24 04:54 65 16 97 03/24/24 04:36 58 L 12 94 03/24/24 04:00 106/66 03/24/24 04:00 54 L 17 98 03/24/24 04:00 56 L 15 106/66 97 03/24/24 03:33 61 17 94 03/24/24 03:00 115/63 03/24/24 03:00 54 L 14 97 03/24/24 03:00 57 L 14 113/77 97 03/24/24 02:11 93/54 L 03/24/24 02:03 54 L 17 96 03/24/24 02:00 36.7 C 56 L 13 115/63 91 03/24/24 01:12 56 L 15 93 03/24/24 01:00 100/60 03/24/24 01:00 55 L 20 100/60 98 03/24/24 00:57 54 L 19 98 03/24/24 00:33 61 19 96 03/24/24 00:06 53 L 12 99 03/24/24 00:01 56 L 12 100/65 96 03/24/24 00:00 100/65 03/23/24 23:57 55 L 15 96 03/23/24 23:39 56 L 16 95 03/23/24 23:29 58 L 14 97/63 L 98 03/23/24 23:22 54 L 03/23/24 23:03 57 L 19 98 03/23/24 23:01 88/59 L 03/23/24 23:00 57 L 14 88/59 L 94 03/23/24 22:54 55 L 16 97 03/23/24 22:33 55 L 17 97 03/23/24 22:24 55 L 16 98 03/23/24 22:00 36.6 C 54 L 14 99/58 L 96 03/23/24 21:35 96/58 L 03/23/24 21:33 57 L 19 97 03/23/24 21:30 63 16 96/58 L 100 03/23/24 21:12 60 24 97 03/23/24 21:07 36.6 C 88/55 L 03/23/24 21:00 56 L 12 98 03/23/24 21:00 58 L 03/23/24 21:00 58 L 14 88/55 L 97 03/23/24 20:39 60 14 94 03/23/24 20:00 58 L 14 102/62 96 03/23/24 20:00 03/23/24 20:00 59 L 14 102/62 97 03/23/24 19:33 60 20 97 O2 Del Method 03/24/24 06:00 Room Air 03/24/24 05:06 Room Air 03/24/24 05:00 03/24/24 05:00 Room Air 03/24/24 04:54 03/24/24 04:36 Room Air 03/24/24 04:00 Room Air 03/24/24 04:00 03/24/24 04:00 Room Air 03/24/24 03:33 03/24/24 03:00 03/24/24 03:00 Room Air 03/24/24 03:00 Room Air 03/24/24 02:11 03/24/24 02:03 Room Air 03/24/24 02:00 Room Air 03/24/24 01:12 Room Air 03/24/24 01:00 03/24/24 01:00 Room Air 03/24/24 00:57 Room Air 03/24/24 00:33 Room Air 03/24/24 00:06 03/24/24 00:01 Room Air 03/24/24 00:00 03/23/24 23:57 03/23/24 23:39 Room Air 03/23/24 23:29 Room Air 03/23/24 23:22 03/23/24 23:03 03/23/24 23:01 03/23/24 23:00 Room Air 03/23/24 22:54 Room Air 03/23/24 22:33 03/23/24 22:24 03/23/24 22:00 Room Air 03/23/24 21:35 03/23/24 21:33 Room Air 03/23/24 21:30 Room Air 03/23/24 21:12 03/23/24 21:07 Room Air 03/23/24 21:00 03/23/24 21:00 03/23/24 21:00 Room Air 03/23/24 20:39 03/23/24 20:00 Room Air 03/23/24 20:00 Room Air 03/23/24 20:00 Room Air 03/23/24 19:33 Laboratory Results 03/24/24 04:42 03/24/24 04:42 PG Care Time/CCT Total # of Minutes Spent Total Time Spent with Patient: Total time spent is greater than 50% in coordination of care (as documented) at patient's floor/unit and/or counseling patient: Coding Level of Care Code 09166 SUB INP/OBS CARE 2/35MIN Diagnoses ST elevation myocardial infarction (STEMI) I21.3 Involved coronary artery: unspecified coronary artery Type 2 diabetes mellitus E11.9 Hypertension I10 Hyperlipidemia E78.5 BPH (benign prostatic hyperplasia) N40.0 (1) ST elevation myocardial infarction (STEMI) Involved coronary artery: unspecified coronary artery Qualified Code(s): I 21.3 - ST elevation (STEMI) myocardial infarction of unspecified site
[2024-03-24 08:17] LABS: Chol HDL Ratio 3.2 (0-5)
--- NOTE | 2024-03-24 14:28 | Pre Anesthesia Assessment ---
Date of Service March 24, 2024 Pre Sedation Assessment Vital Signs Temp Pulse Pulse Resp BP BP Pulse Ox 03/24/24 13:39 56 L 20 122/81 97 03/24/24 12:42 59 L 20 112/65 98 03/24/24 11:12 54 L 19 113/69 97 03/24/24 10:00 58 L 13 93/62 L 97 03/24/24 09:15 65 17 105/60 97 03/24/24 09:07 36.8 C 03/24/24 08:15 60 14 105/65 92 03/24/24 07:03 55 L 10 L 92/52 L 96 03/24/24 06:00 36.6 C 57 L 16 108/62 97 03/24/24 05:06 56 L 14 94 03/24/24 05:00 101/58 L 03/24/24 05:00 58 L 20 101/58 L 94 03/24/24 04:54 65 16 97 03/24/24 04:36 58 L 12 94 03/24/24 04:00 106/66 03/24/24 04:00 54 L 17 98 03/24/24 04:00 56 L 15 106/66 97 03/24/24 03:33 61 17 94 03/24/24 03:00 115/63 03/24/24 03:00 54 L 14 97 03/24/24 03:00 57 L 14 113/77 97 03/24/24 02:11 93/54 L 03/24/24 02:03 54 L 17 96 03/24/24 02:00 36.7 C 56 L 13 115/63 91 03/24/24 01:12 56 L 15 93 03/24/24 01:00 100/60 03/24/24 01:00 55 L 20 100/60 98 03/24/24 00:57 54 L 19 98 03/24/24 00:33 61 19 96 03/24/24 00:06 53 L 12 99 03/24/24 00:01 56 L 12 100/65 96 03/24/24 00:00 100/65 03/23/24 23:57 55 L 15 96 03/23/24 23:39 56 L 16 95 03/23/24 23:29 58 L 14 97/63 L 98 03/23/24 23:22 54 L 03/23/24 23:03 57 L 19 98 03/23/24 23:01 88/59 L 03/23/24 23:00 57 L 14 88/59 L 94 03/23/24 22:54 55 L 16 97 03/23/24 22:33 55 L 17 97 03/23/24 22:24 55 L 16 98 03/23/24 22:00 36.6 C 54 L 14 99/58 L 96 03/23/24 21:35 96/58 L 03/23/24 21:33 57 L 19 97 03/23/24 21:30 63 16 96/58 L 100 03/23/24 21:12 60 24 97 03/23/24 21:07 36.6 C 88/55 L 03/23/24 21:00 56 L 12 98 03/23/24 21:00 58 L 03/23/24 21:00 58 L 14 88/55 L 97 03/23/24 20:39 60 14 94 03/23/24 20:00 58 L 14 102/62 96 03/23/24 20:00 03/23/24 20:00 59 L 14 102/62 97 03/23/24 19:33 60 20 97 03/23/24 19:00 03/23/24 19:00 36.6 C 64 14 118/64 96 03/23/24 16:09 65 16 93/51 L 97 03/23/24 16:00 58 L 03/23/24 16:00 36.7 C 03/23/24 15:00 58 L 8 L 109/67 95 O2 Del Method 03/24/24 13:39 Room Air 03/24/24 12:42 03/24/24 11:12 03/24/24 10:00 03/24/24 09:15 03/24/24 09:07 03/24/24 08:15 03/24/24 07:03 03/24/24 06:00 Room Air 03/24/24 05:06 Room Air 03/24/24 05:00 03/24/24 05:00 Room Air 03/24/24 04:54 03/24/24 04:36 Room Air 03/24/24 04:00 Room Air 03/24/24 04:00 03/24/24 04:00 Room Air 03/24/24 03:33 03/24/24 03:00 03/24/24 03:00 Room Air 03/24/24 03:00 Room Air 03/24/24 02:11 03/24/24 02:03 Room Air 03/24/24 02:00 Room Air 03/24/24 01:12 Room Air 03/24/24 01:00 03/24/24 01:00 Room Air 03/24/24 00:57 Room Air 03/24/24 00:33 Room Air 03/24/24 00:06 03/24/24 00:01 Room Air 03/24/24 00:00 03/23/24 23:57 03/23/24 23:39 Room Air 03/23/24 23:29 Room Air 03/23/24 23:22 03/23/24 23:03 03/23/24 23:01 03/23/24 23:00 Room Air 03/23/24 22:54 Room Air 03/23/24 22:33 03/23/24 22:24 03/23/24 22:00 Room Air 03/23/24 21:35 03/23/24 21:33 Room Air 03/23/24 21:30 Room Air 03/23/24 21:12 03/23/24 21:07 Room Air 03/23/24 21:00 03/23/24 21:00 03/23/24 21:00 Room Air 03/23/24 20:39 03/23/24 20:00 Room Air 03/23/24 20:00 Room Air 03/23/24 20:00 Room Air 03/23/24 19:33 03/23/24 19:00 Room Air 03/23/24 19:00 Room Air 03/23/24 16:09 03/23/24 16:00 03/23/24 16:00 03/23/24 15:00 Cardiovascular RRR, no murmur, no edema Respiratory normal respiratory effort, lungs clear to auscultation Pre-Sedation Airway Assessment Smoking Status: Current every day smoker Hx Sleep Apnea: No Short, Thick Neck: No Thyromental Distance: > or= 3.5 Finger Breadths Oral Cavity: + WNL Mallampati Class: III ASA: ASA3 NPO Status Date of Last Intake of Fluids: 03/24/24 Date of Last Intake of Solid Food: 03/23/24 Notes The planned sedation has been discussed with the patient. Informed Consent was obtained. I have identified the patient, determined the appropriateness of sedation and have assessed the patient immediately prior to the procedure. All medicine(s) and interventions are by my order.
[2024-03-24] MEDS: niCARdipine HCL INJ 2.5 MG/ML 10 ML AMP ONE (14:58)
[2024-03-24] MEDS: NITROGLYCERIN/D5W 100MCG/ML 20ML SYR ONE (14:59)
[2024-03-24] MEDS: diphenhydrAMINE 50 MG/ML VIAL ONE (14:59)
[2024-03-24] MEDS: fentaNYL citrate PF 100 MCG/2 ML VIAL ONE (15:18)
[2024-03-24] MEDS: MIDAZOLAM HCL 1 MG/ML 2ML VIAL ONE (15:19)
[2024-03-24] MEDS: OPTIRAY 350 ONE (15:28)
[2024-03-24] MEDS: HEPARIN (PORCINE) 1000 UNIT/ML 10 ML (CATH LAB USE ONLY) ONE (15:29)
--- NOTE | 2024-03-24 17:12 | Critical Care Progress Note ---
Date of Service March 24, 2024 Assessment & Plan (1) ST elevation myocardial infarction (STEMI): (2) Hyperlipidemia: (3) Hypertension: (4) Type 2 diabetes mellitus: Plan 2D echo 03/23/2024: EF 60-65%, mild concentric LVH, regional wall motion abnormalities and basal inferior posterior, RVSP normal -- STEMI S/p 1 drug-eluting stent in RCA 03/22/2024 S/p 3 drug-eluting stent LAD 03/24/2024 - ACEI, BB, statin, ASA, brillinta --History of hypertension/dyslipidemia On lisinopril and simvastatin at home Currently on beta-dalila and lisinopril --Diabetes type 2 Continue with ICU hypoglycemia protocol --Prophylaxis VTE: None GI: None Lines: Peripheral Diet: Cardiac Plan: Trend EKG and troponin Disposition as per cardiology Please note the above document was generated using voice recognition software. It may contain grammatical, syntax or spelling errors.Any formal questions or concerns about the content, text or information contained within the body of this dictation should be directly addressed to the provider for clarification. Admission and Anticipated Discharge Date Admission Date: March 22, 2024 Subjective Patient seen and examined at bedside. He just returned from his second cardiac cath. He was having his dinner. No nausea vomiting, no abdominal pain No chest pain, no shortness of breath No headache or blurry vision Review of Systems 2 Review of Systems: All systems reviewed & are unremarkable except as noted in Subjective Physical Exam 2 Physical Exam: Constitutional: No acute distress HEENT: EOMI, PERRLA, hard to hear Respiratory system: Good air entry bilaterally, no wheeze, no rhonchi, mild crackles bilateral lower lobes CVS: S1-S2 positive, no murmurs or gallops Abdomen: Soft, nontender, nondistended, positive bowel sounds x4 Extremities: +2 pulses bilaterally radialis/ dorsalis pedis, no cyanosis, no edema Neuro: Awake alert oriented x3 Psych: Normal mood and affect G/U: No Khanna Skin: no rashes, warm and dry Lymphatic: no cervical or axillary lymphadenopathy Results & Data Results & Data Vital Signs (Past 12 Hours) Vital Signs Temp Pulse Pulse Resp BP BP Pulse Ox 03/24/24 16:41 36.8 C 03/24/24 16:36 65 03/24/24 15:50 57 L 18 126/69 94 03/24/24 15:35 60 18 136/85 97 03/24/24 13:39 56 L 20 122/81 97 03/24/24 12:42 59 L 20 112/65 98 03/24/24 11:12 54 L 19 113/69 97 03/24/24 10:00 58 L 13 93/62 L 97 03/24/24 09:15 65 17 105/60 97 03/24/24 09:07 36.8 C 03/24/24 08:15 60 14 105/65 92 03/24/24 07:03 55 L 10 L 92/52 L 96 03/24/24 06:00 36.6 C 57 L 16 108/62 97 O2 Del Method 03/24/24 16:41 03/24/24 16:36 03/24/24 15:50 Room Air 03/24/24 15:35 Room Air 03/24/24 13:39 Room Air 03/24/24 12:42 03/24/24 11:12 03/24/24 10:00 03/24/24 09:15 03/24/24 09:07 03/24/24 08:15 03/24/24 07:03 03/24/24 06:00 Room Air Laboratory Results 03/24/24 04:42 03/24/24 04:42 Coding Level of Care Code 94560 SUB INP/OBS CARE 11/05MIN Diagnoses ST elevation myocardial infarction (STEMI) I21.3 Involved coronary artery: unspecified coronary artery Hyperlipidemia E78.5 Hypertension I10 Type 2 diabetes mellitus E11.9 (1) ST elevation myocardial infarction (STEMI) Involved coronary artery: unspecified coronary artery Qualified Code(s): I 21.3 - ST elevation (STEMI) myocardial infarction of unspecified site
[2024-03-24 18:51] LABS: Basophils # (auto) 0.04 K/uL (0.00-0.20); Basophils % (auto) 0.5 %; Eosinophils # (auto) 0.18 K/uL (0.00-0.50); Eosinophils % (auto) 2.2 %; Hematocrit (blood only) 34.5 % (42.0-52.0); Hemoglobin 11.6 g/dl (14.0-18.0); Immature Granulocytes # (auto) 0.03 K/uL (0.01-0.20); Immature Granulocytes % (auto) 0.4 %; Lymphocytes # (auto) 2.15 K/uL (1.20-3.40); Lymphocytes % (auto) 25.9 %; Mean Corpuscular Hemoglobin 32.4 pg (25.0-34.0); Mean Corpuscular Hgb Conc 33.6 g/dL (32.0-36.0); Mean Corpuscular Volume 96.4 fL (80.0-100.0); Mean Platelet Volume 8.9 fL (9.4-12.4); Monocytes # (auto) 0.54 K/uL (0.11-0.59); Monocytes % (auto) 6.5 %; Neutrophils # (auto) 5.35 K/uL (1.40-6.50); Neutrophils % (auto) 64.5 %; Platelet Count 182 K/uL (130-400); RDW Coefficient of Variation 12.9 % (11.5-14.5); RDW Standard Deviation 46.1 fL (36.4-46.3); Red Blood Count 3.58 M/uL (4.70-6.10); White Blood Count 8.29 K/ul (4.8-10.8)
[2024-03-24] MEDS: IODIXANOL (VISIPAQUE) 320 MG/ML 100ML IV ONE (21:30)
[2024-03-25 05:19] LABS: Basophils # (auto) 0.05 K/uL (0.00-0.20); Basophils % (auto) 0.5 %; Eosinophils # (auto) 0.22 K/uL (0.00-0.50); Eosinophils % (auto) 2.3 %; Hematocrit (blood only) 33.2 % (42.0-52.0); Hemoglobin 11.3 g/dl (14.0-18.0); Immature Granulocytes # (auto) 0.03 K/uL (0.01-0.20); Immature Granulocytes % (auto) 0.3 %; Lymphocytes % (auto) 20.1 %; Mean Corpuscular Volume 94.1 fL (80.0-100.0); Mean Platelet Volume 9.2 fL (9.4-12.4); Monocytes % (auto) 8.5 %; Neutrophils # (auto) 6.43 K/uL (1.40-6.50); Neutrophils % (auto) 68.3 %; Platelet Count 206 K/uL (130-400); RDW Coefficient of Variation 12.8 % (11.5-14.5); RDW Standard Deviation 44.1 fL (36.4-46.3); Red Blood Count 3.53 M/uL (4.70-6.10); White Blood Count 9.43 K/ul (4.8-10.8)
[2024-03-25 05:29] LABS: BUN Creatinine Ratio 18.2 (10-20); Calcium 8.8 mg/dl (8.6-10.3); Creatinine Clr Calc Pharmacy 95.9 ml/min; Est GFR (African American) 105.2 ml/min; Est GFR (Non-African American) 90.8 ml/min; Magnesium 1.8 mg/dl (1.7-2.4); Phosphorus 2.7 mg/dl (2.5-4.9)
--- NOTE | 2024-03-25 07:21 | Discharge Summary ---
Date of Service March 25, 2024 Admission HPI Per Admitting Provider Juan Carlos Hoang is a 63-year-old male with past medical history of type 2 diabetes, hypertension, hyperlipidemia without prior history of CAD who presented with chest pain and diaphoresis, mild nausea with substernal chest pain which started abruptly about 30 minutes before evaluation in the ER. 6/10 pain. EKG with inferior lateral STEMI. Heart alert was called and patient was taken emergently to the cardiac [facility]. Seen at the bedside post cath. He has had complete resolution of his pain. He reports that he has no prior history of chest pain chest pressure or cardiac disease. Does have a history of diabetes, he did not take his dulaglutide this past Thursday. He has a history of half pack per day tobacco use, will think about quitting. He does not have any history of bleeding disorders or DVT. Does have history of well-controlled hypertension. Hyperlipidemia on simvastatin. Episode today occurred while he was taking a whole, had sudden onset of pain which radiated to the middle of his chest was associated with some sweating. All symptoms have completely resolved post cath. Does have a right forearm hematoma slightly proximal to his radial access site, this is at the site of his IV access Principal Diagnosis Inferior STEMI, multivessel CAD Discharge Exam PHYSICAL EXAMINATION Last 24h vital signs reviewed, see documentation in flowsheet General: comfortable appearing, no distress, sitting up in bed, sister and friend in room HEENT: Normocephalic, atraumatic, pupils round and equal, sclerae anicteric, no conjunctival injection, moist mucus membranes Lungs: Normal respiratory effort. Clear to auscultation bilaterally. No RRW Heart: Regular rate and rhythm, no murmurs. No JVD Abdomen: Soft, nontender, nondistended. Bowel sounds present. Extremities: Warm, dry, well-perfused. No extremity edema. left wrist arterial puncture site without swelling, radial pulse brisk, left forearm swelling resolved - unchanged Neuro: Alert and oriented x 4, face symmetric, moves 4 extremities well Psych: Normal affect and behavior Discharge Data Allergies Allergy/AdvReac Type Severity Reaction Status Date / Time No Known Drug Allergies Allergy Verified 12/03/23 07:30 Consultations 03/22/24 17:24 ED Decision to Admit Stat 03/22/24 18:19 Consult Cardiac Rehabilitation Routine Consult Cardiology Routine Consult Energy Director Routine Procedures Performed Operation Date: 03/24/24 12:30 Actual Procedures p Drug Eluting Stent SGl Vessel - Sincere Liu MD, PhD s Cineradiography w/Routine Exam - Sincere Liu MD, PhD Ordered Studies 03/22/24 17:11 CL Cath Imgs for PACS use only Stat 03/24/24 12:30 CL Cath Imgs for PACS use only Routine Hospital Course (1) ST elevation myocardial infarction (STEMI): 63-year-old man with history of ongoing smoking presented with inferior STEMI. Underwent coronary angiography with GAYE to right coronary artery. He also has a significant LAD lesion, underwent PCI of LAD with three GAYE placed 03/24. Did well with no ongoing chest pain or symptoms of heart failure. echocardiogram reviewed normal EF, expected RWMAs, see below plan to continue aspirin and Brilinta, continue metoprolol and atorvastatin counseled on risks of early discontinuation of DAPT with patient including stent thrombosis causing severe myocardial infarction on 03/24 he has Brilinta coupon at bedside counseled smoking cessation - he will try lozenges, follow up in primary care follow up with Dr. Liu TTE 03/23/24: (2) Type 2 diabetes mellitus: Type II DM. A1c was 7.3 in November Metformin, glipizide, dulaglutide (3) Hypertension: Hypertension Lisinopril reduced, metoprolol started (4) Hyperlipidemia: - LDL was 59 in November on simvastatin. changed to Atorvastatin A.m. lipid panel - LDL is 60 (5) BPH (benign prostatic hyperplasia): Plan anemia - stable. follow up in primary care. ferritin and serum iron were normal in November Total Time Total Time Spent Total Time Spent (In Minutes): I personally spent: 35 minutes today on clinical care activities including: reviewing chart notes and vital signs reviewing labs reviewing studies examining and counseling the patient counseling the patient's family writing orders documentation Discharge Plan Discharge Items Patient Disposition: Home - Self-Care Reason For Visit: STEMI Discharge Diagnosis: STEMI SEVERE CAD S/P PCI (RCA and LAD) Condition on Discharge: Good Activity: Per Instructions section Non-emergency contact: Revenue Field Agent Call non-emergency contact if: you have any medication questions, your symptoms worsen, your pain is not controlled, you have a fever, your wound has increased redness and your wound has increased drainage Follow-up/Referrals: Roni Flynn MD [Primary Care Provider] - 03/30/24 11:00 am (Scheduled 03/30/24 at 11:00 with Ena Gallardo) Diet: Carb Consistent or DM2 and Heart Healthy Addtl Attending Provider Instructions: ACTIVITY RECOMMENDATIONS: It is common to feel weak and fatigue for a few days. * Do not drive or operate any motorized equipment for the next three days. * Limit stair usage (2 or 3 trips a day only) for the next three days. * Do not lift anything heavier than 10 pounds for the next three days. * Do not engage in vigorous exercise or any sports for the next five days. * You may shower the day after your procedure, but do not immerse the area for three days. Cleanse the site gently with soap and water. SPECIAL CARE INSTRUCTIONS: * You may replace the pressure dressing or band-aid the morning after the procedure. * After your procedure, it is normal to have a small bruise or small lump at the site. Examine your site daily for any change in the bruise or lump, redness, swelling, drainage or numbness. Notify your doctor if any change. BLEEDING: * If there is a small amount of bleeding at the site, lie down and apply firm pressure with a clean cloth for ten minutes. When the bleeding stops, lie quietly keeping the procedure limb straight for six hours. Notify your doctor as soon as possible. * If the bleeding does not stop after ten minutes or if there is a large amount of bleeding or spurting, call 911 immediately. Continue to lie down and hold firm pressure until help arrives. SKIN IRRITATION: * You may experience some redness and/or swelling in the area where radiation was administered. If any skin irritation occurs, please contact your family physician. FOLLOW UP VISIT: Keep any scheduled doctor appointments. Addtl Roll Scale Man Provider Instructions: Do not stop dual treatment with aspirin and Brilinta unless directed by your inspector balance wheel motion, unless in an emergency as directed by physicians Do not run out of these medications or skip doses Stopping them too early can cause the stents to clot off which can result in a severe heart attack Pending Studies at Discharge: No Stand-Alone Forms: My [employer], Work/School Release, Smoking Cessation Medications and DC Order Prescriptions: New atorvastatin 40 mg Tablet 40 mg PO QAM Qty: 90 3RF lisinopril 10 mg Tablet 10 mg PO QAM Qty: 90 3RF nitroglycerin [Nitrostat] 0.4 mg Tablet, Sublingual 0.4 mg sublingual Q5M MDD 3 TABS PRN (Reason: chest pain) Qty: 25 3RF metoprolol tartrate 25 mg Tablet 25 mg PO BID Qty: 180 3RF Brilinta 90 mg Tablet 90 mg PO BID Qty: 180 3RF Continued (DME) blood-glucose meter [FreeStyle Lite Meter] kit See Dose Instructions .ROUTE .MEDSUPPLY Qty: 1 0RF Dose Instruction: As directed Rx Instructions: test sugar twice a day and as needed (DME) FreeStyle Lite Strips Strip See Dose Instructions .ROUTE .MEDSUPPLY Qty: 200 3RF Dose Instruction: As directed Rx Instructions: As directed to test blood sugar twice daily glipizide 5 mg tablet extended release 24hr 5 mg PO BID Qty: 180 3RF dulaglutide 3 mg/0.5 mL pen injector 3 mg SQ WK Qty: 6 3RF Rx Instructions: Take q sun hydrochlorothiazide 12.5 mg tablet 12.5 mg PO DAILY Qty: 90 3RF Trulicity 1.5 mg/0.5 mL pen injector 1.5 mg subcut .COMPLEX Qty: 6 3RF Rx Instructions: inject 0.5 ml SQ weekly on Sundays aspirin 81 mg tablet,delayed release (DR/EC) 81 mg PO DAILY Qty: 90 multivitamin tablet 1 tab PO DAILY (DME) lancets [FreeStyle Lancets] 28 gauge misc See Dose Instructions .ROUTE .MEDSUPPLY Qty: 100 3RF Dose Instruction: As directed Rx Instructions: As directed to test blood sugar twice daily ascorbate calcium (vitamin C) 500 mg tablet 500 mg PO DAILY Held metformin 500 mg tablet 1,000 mg PO BID Qty: 360 3RF Hold Instructions: Resume on 03/26/24. START AM DOSE ON 03/26 Discontinued lisinopril 40 mg tablet 40 mg PO DAILY Qty: 90 3RF simvastatin 20 mg tablet 20 mg PO HS Qty: 90 3RF Discharge Orders: Discharge Order (Routine); Ordered 03/25/24 Ordered By: Zarina Fairchild Admission Data Admit Date/Time: 03/22/24 17:32 Attending Provider: Zarina Fairchild Admit Provider: Alessio Monroy Primary Care Provider: Roni Flynn Other Providers: Alessio Monroy; Sincere Liu; Abhi Garcia; Claudio Chisholm; Jessee Estrada; Yonatan Castro; Joselito Jimenez; Maddie Womack; Alfa [place]; Tiffanie Roe; Shanda Arevalo; Juan Carlos Barraza; Victorino Theodore; Ayanna Harris Other Interventions: Discharge Summary Assessment (RN) Last Done: 03/25/24 10:57 Coding Level of Care Code 13846 INP/OBS DISCH >[address] elevation myocardial infarction (STEMI) I21.3 Involved coronary artery: unspecified coronary artery Type 2 diabetes mellitus E11.9 Hypertension I10 Hyperlipidemia E78.5 BPH (benign prostatic hyperplasia) N40.0
--- NOTE | 2024-03-25 14:58 | Cardiac Catheterization ---
[facility] Data: Department Clinician Cardiac Status Clinical evaluation leading to the procedure CAD Presenation: STEMI Anginal Classification: CCS IV Heart Failure: No Cardiogenic Shock within 24 Hours: No Cardiac Arrest within 24 Hours: No Imaging Studies Past 6 Months: Yes Coronary Anatomy Dominant: Co-Dominant (See diagnostic coronary angiography report) Diagnostic Physicians Name: Sincere Liu MD, PhD Closure Device Percutaneous Entry Location: Radial Closure Device: Radial Band Recommendations: Medical Therapy and/or Counseling and PCI without planned CABG PCI Indication: Staged PCI Lesion Segment Name: Mid and distal LAD Culprit Artery: Yes Stenosis Prior to Rx (%): 70% mid, up to 95% distal Chronic Total Occlusion: No Pre-Procedure JESSICA Flow: 3 Previously Treated Lesion: No Lesion Complexity: Non-High/Non-C Lesion Length (mm): 14 mm mid, 22 mm distal Thrombus Present: No Bifurcation Lesion: No Guidewire Across Lesion: Yes Intraprocedure Events Significant Disection: No Perforation: No Cardiac Cath Procedure Full Procedure Date March 25, 2024 Pre-Procedure Diagnosis Pre-Procedure Diagnosis: CAD AUC Score AUC Score: 07 Post-Procedure Diagnosis Post-Procedure Diagnosis: Severe CAD and Successful PCI Procedure(s) Performed Procedure(s) Performed: Drug Eluting Stent [place] Sincere Liu MD, PhD Estimated Blood Loss Estimated Blood Loss: 10 CC Medication(s) Medication(s): Fentanyl, Heparin, Integrilin, Lidocaine 1%, Nicardipine, Nitroglycerin and Versed Summary of Findings Patient is here for staged PCI of the LAD. Repeat angiography was performed in preparation for PCI. This suggested the mid LAD lesion was more severe than appreciated on the prior angiography. Also, some difficulty passing interventional equipment through this segment. Therefore decision was made to perform PCI not only on the distal lesion but also the mid lesion. Brief description: Patient was brought to the cardiac catheterization suite where he was shaved and prepped in a sterile fashion. Sedated using IV Versed and fentanyl. Soft tissues of the right wrist were anesthetized using 2 mL of 1% Xylocaine. The right radial artery was accessed with a modified Seldinger technique and a 6 Macanese radial artery glide sheath was placed. Patient was provided anticoagul ation with IV heparin and antispasmodics including nitroglycerin and nicardipine. All catheters were advanced and exchanged over a 0.035 J-tip wire. Left coronary angiography was performed using a 6 Macanese JL 3.5 guiding catheter. (We attempted EBU 3.0 but it did not fit) ACT was checked and additional heparin was provided throughout the procedure as needed to maintain therapeutic anticoagulation. BMW dorsal guidewire was advanced and positioned distally in the LAD. The more distal lesion was predilated using a 2.0 x 12 mm trek balloon inflated at 8 vince followed by 14 vince. The balloon was removed. The mid LAD lesion was then predilated using a 2.5 x 12 mm trek balloon with 2 inflations up to 14 vince. The balloon was then removed. We were able to deliver a 2.25 x 18 mm Eber drug-eluting stent across the distal lesion where it was deployed at 14 vince. We were hoping to not intervene on the more distal lesion. The stent balloon was then removed. A 3.0 x 18 Eber drug-eluting stent was then positioned across the mid LAD lesion avoiding the ectatic portion and covering the diseased segment. This was deployed at 14 vince. Stent balloon was removed. Intracoronary nitroglycerin was provided and coronary angiography was performed. Decision was made to add an additional stent to cover the most distal lesion as it did not improve with nitroglycerin. A 2.0 x 15 mm Perryman drug-eluting stent was advanced over the wire and positioned distal to the first stent in an overlapped manner. It was deployed at 12 vince. The stent balloon was then deflated, repositioned over the overlap segment and inflated to 18 vince. The balloon was then removed. The most proximal portion of the distal stent train was postdilated using a 2.5 x 8 mm NC Kobi balloon inflated to 14 vince. The balloon was then removed. The mid LAD stent was postdilated using a 3.0 x 12 mm NC balloon at 15 vince x 2 throughout the length of the stent. The balloon was then removed. Final angiographic evaluation was performed. The guidewire was removed. Guide catheter was removed. Radial artery sheath was removed. Hemostasis was obtained using the TR band. Patient remained hemodynamically stable and asymptomatic. He was returned to the recovery area. This ended the case. PCI findings: 0% residual stenosis in the distal segments as well as in the mid segments post PCI. JESSICA-3 flow post PCI No evidence of dissection or perforation post PCI There is residual ectasia in the mid segment after the stented portion. Summary: 1. Successful PCI for complex and diffuse LAD disease using 2 overlapped drug- eluting stents distally and a single drug-eluting stent in the midsegment. 2. Continue dual antiplatelet therapy with aspirin and Brilinta for 1 to 2 years. 3. Continue guideline directed medical therapy for secondary prevention of coronary artery disease. Hemodynamics Rest Ao:: 124/65 mmHg Final Ao: 116/60 mm stacy LV: Not performed Recommendations Recommendations: Medical Therapy and/or Counseling and PCI without planned CABG Radiation Exposure (mGy) 1829 mGy, fluoroscopy time 13.3-minute Contrast (mls) 140 mL Anesthesia 25 mg Benadryl. Start time 1454, end time 1529 Procedural Complication(s) None Disposition ICU I attest to the content of the Intraoperative Record and any orders documented therein. Any exceptions are noted below. [facility] Card Cath Procedure Codes Moderate Sedation Procedure 1: Sedation/Anesthesia: 64774 Mod Sedation by the same physician;Init15 Min Child Age 5 & Up (Initial 15 minutes, start time 1454) Procedure 2: Sedation/Anesthesia: 22532 Mod Sedation by the same physician; Ea [id number] Minutes (Additional 20 minutes, end time 1529) Stenting Procedure 1: Cardiovascular Stent Procedures: 11012 Perc transcatheter placement of intracoronary stent(s), with ang (LAD) PG Care Time/CCT Total # of Minutes Spent Total Time Spent with Patient: Total time spent is greater than 50% in coordination of care (as documented) at patient's floor/unit and/or counseling patient:
--- NOTE | 2024-03-25 17:14 | Electrocardiogram Report ---
Test Reason : Blood Pressure : / mmHG Vent. Rate : 057 BPM Atrial Rate : 057 BPM P-R Int : 232 ms QRS Dur : 084 ms QT Int : 430 ms P-R-T Axes : 047 -06 -60 degrees QTc Int : 418 ms Sinus bradycardia with 1st degree A-V block Inferior infarct (cited on or before 22-MAR-2024) Poor R wave progression, consider anterior WA vs. lead placement vs. LVH ST segement changes concerning for ischemia or evolving WA Abnormal ECG When compared with ECG of 23-MAR-2024 08:39, Anterior infarct is now Present Confirmed by Tomás Cee ([id number]) on 03/25/2024 5:14:46 PM Referred By: REFERRED SELF Confirmed By:Obey Cee
== END 2024-03-25 12:42 | disposition home or self-care (01) | DRG 321 ==
LOC: ED 16:55 → CC 17:24 → 1E 17:24 → SUATTDRO 17:32
PROC: CLB.CCO (2024-03-22 17:30)